=== PATIENT | male | born 1955 | race Caucasian/White ===

== ENCOUNTER 2018-01-15 09:29 | Inpatient (IN) | payer OTHER, SELFPAY ==
[2018-01-15] VITALS (28 sets, daily range): BP systolic 119–159; BP diastolic 74–107; PULSE 69–97; RESP 10–22; TEMP 36.4–37.1; O2SAT 96–99; BMI 35.9; BMI 36.6
[2018-01-15] MEDS: Heparin Injection 5,000 UNITS/ML Syringe 4000 UNITS IV (09:35)
[2018-01-15] MEDS: TICAGRELOR 90 MG TABLET 180 MG PO (09:35)
--- NOTE | 2018-01-15 09:35 | RAD_ITS ---
STUDY: X-RAY CHEST REASON FOR EXAM: Male, 62 years old. Chest pain TECHNIQUE: Single view of the chest was obtained COMPARISON: None. FINDINGS: No lung consolidation, pleural effusion or pneumothorax. Somewhat low lung volumes. Cardiac size appears enlarged. Mild perihilar streaky opacities. Slightly elevated right hemidiaphragm. RAD/Chest 1 View (Portable) IMPRESSION: No evidence for focal airspace disease or pneumothorax. Mild pulmonary vascular congestion. Electronically Signed: Juan Pal, at 10:13 EST Tel , Service support ,
--- NOTE | 2018-01-15 09:38 | ED.VISSUMM ---
- ER Visit Summary Date of Service: 01/15/18 Chief Complaint: Chest pain History of Present Illness: The patient is a [address] Gerardo. He reports he has intermittent chest pain that began 3 days ago. It became abruptly worse at 830 this morning while he was at rest. Is a sharp pain that is 9 out of 10 at worst and 7 out of 10 currently. It is associated with shortness of breath. He has never had anything like this before. He denies any high blood pressure, diabetes, high cholesterol, or tobacco use. He does have a strong family history of coronary artery disease. Physical Examination: Vitals: Stable. Afebrile. General: Well-nourished and well-developed. Head: Normocephalic atraumatic. Neck: Supple, no lymphadenopathy. No JVD. Nontender. Cardiovascular: Regular rate and rhythm. No murmurs. Respiratory: No respiratory distress. Clear to auscultation bilaterally. Abdominal: Soft, mild diffuse tenderness to palpation, nondistended, normal bowel sounds. No guarding, rebound, or peritoneal signs. Back: Nontender. Extremities: Nontender, no edema. Skin: Normal color, no rash. Neurologic: Alert and oriented ?3. Cranial nerves II through XII are intact. Normal strength and sensation. Psych: Normal affect. Test Results: Prehospital EKG shows sinus tachycardia at [address] elevation in leads V2 to V5. There is no old EKG for comparison. Emergency Department Course and Treatment: STEMI team was called before the patient arrived in the hospital. He was met in the ER by staff. He received aspirin by squad. This was not repeated. He received heparin IV and Brilinta p.o. Treatment Plan: The patient was discussed with Agiular Small. He will be taken emergently to the [facility]. Disposition: Admitted in critical condition. Impression: 1. ST elevation DE. 2. Critical care time 30 minutes. This note was generated with [employer] dictation software. It may contain incorrect words, spelling, and punctuation that were not noted in review of the chart prior to signing ED Disposition - Plan for ED Patient: Chief Complaint: Chest Pain Referrals: Frank Gerardo DO [Primary Care Provider] -
[2018-01-15] MEDS: 0.9% Normal Saline 1,000 ML 150 ML IV (09:40)
--- NOTE | 2018-01-15 09:46 | PCM.CONS.C ---
Problem List (1) STEMI (ST elevation myocardial infarction) Status: Acute Reason for Consult Date of Consultation: 01/15/18 History of Present Illness: The patient is a 62 year old M with no significant past medical history. He has been having intermittent chest pain over the last 2-3 days. However this morning it has been more constant and severe. EMS was therefore called. An EKG was done in the field which showed acute anterior ST elevation myocardial infarction. Patient denies any previous history of heart problems. According to him, the chest pain he is having is anterior. No radiation. Positive associated shortness of breath. [] Past Medical History Allergies/Adverse Reactions: Allergies NSAIDS (Non-Steroidal Anti-Inflamma Allergy (Verified 01/15/18 09:41) Swelling Smoking Status: Never smoker Review of Systems - Review of Systems General: Denies: Fever, Chills, Anorexia, Weight Loss HEENT: Reports: Vision Change Cardiovascular: Reports: Chest Discomfort at Rest, Chest Tightness, Shortness of Breath. Denies: Orthopnea, PND Respiratory: Denies: Cough, Hemoptysis Gastrointestinal: Denies: Abdominal Discomfort, Jaundice, Nausea Muscoloskeletal: Denies: Myalgias Neurological: Denies: History of TIA, History of CVA Endocrine: Denies: Heat Intolerance, Cold Intolerance Hematologic/ Lymphatic: Denies: Easy Brusing, Easy Bleeding Subjectve: Appears mildly anxious Objective: Vital Signs Temp Pulse Resp BP Pulse Ox 98.2 F 97 18 141/95 H 96 01/15/18 09:35 01/15/18 09:35 01/15/18 09:35 01/15/18 09:35 01/15/18 09:41 Oxygen Flow Rate 2 Oxygen Delivery Method Nasal Cannula Weight: 113.5 kg Body Mass Index (BMI) 35.9 General: Awake, Alert, Oriented x 3 HEENT: Atraumatic, Normocephalic Oral: Moist Mucosa Neck: Supple, No JVD Lungs: Clear to auscultation Cardiovascular: Regular Rhythm, Normal S1, Normal S2 Vascular: No Carotid Bruits Abdomen: Bowel Sounds Present, Soft Extremities: No edema Neurological: No Focal Motor or Sensory Deficit Psych/Mental Status: Appropriate Rhythm: Normal sinus rhythm EKG: EKG done in the field shows changes consistent with acute anterior myocardial infarction. ECHO: Stress Test: Cardiac Cath: PCI: CT Surgery: Holter monitor: EPS: PPM: CXR: Chest CT Scan: Assessment/Plan 1. Anterior ST elevation myocardial infarction. Recommend emergent cardiac catheterization with coronary angiography and possible revascularization. Risks benefits were explained to the patient. He understands these and wishes to proceed 2. Further recommendations will follow results of cardiac catheterization
[2018-01-15 10:00] LABS: Absolute Lymphocyte Count 2.02 X10^3/ul (0.83-4.51); Absolute Neutrophil Count 3.6 X10^3/uL (2.0-7.7); Basophil# 0.02 X10^3/uL; Basophil% 0.3 % (0-1); Eosinophil# 0.05 X10^3/uL; Eosinophils% 0.8 % (0-5); Hematocrit 48.2 % (40-54); Hemoglobin 16.4 g/dl (13.0-16.5); Lymphocyte # 2.02 X10^3/ul (4.0); Lymphocyte % 32.4 % (19-41); Mean Corpuscular Hgb 30.7 pg (27.0-32.0); Mean Corpuscular Volume 90.3 fL (80-94); Mean Platelet Vol. 10.1 fl (6.2-12.0); Monocyte# 0.52 X10^3/uL; Monocyte% 8.3 % (0-10); Neutrophil % 57.7 % (47-70); POSITIVE COUNT NO; POSITIVE DIFFERENTIAL NO; POSITIVE MORPHOLOGY NO; Platelet Count 249 K/mm3 (150-450); RBC Distribution Width CV 12.6 % (11.6-14.6); RBC Distribution Width SD 41.2 fl (35.1-43.9); Red Blood Count 5.34 M/mm3 (4.6-6.2); White Blood Count 6.2 K/mm3 (4.4-11.0)
[2018-01-15 10:03] LABS: Prothrombin Time (Protime)PT. 13.4 SECONDS (11.7-14.9)
[2018-01-15 10:04] LABS: Partial Thromboplast Time 26.9 Seconds (24.1-36.2)
[2018-01-15 10:13] LABS: Anion Gap 9 (5-15); BUN 17 mg/dL (7-18); BUN/Creat Ratio 16.2 RATIO (10-20); Calcium,Total 8.5 mg/dL (8.5-10.1); Chloride 109 mmol/L (98-107); Creatinine, Serum 1.05 mg/dL (0.70-1.30); EST Glomerular Filtration Rate 76 mL/min (>60); Est Glom Filt Rate - Afr Amer 92 mL/min (>60); Estimated Creatinine Clearance 75.32 ml/min; Glucose 151 mg/dL (74-106); Potassium 3.7 mmol/L (3.5-5.1); Sodium Level 140 mmol/L (136-145)
[2018-01-15 10:51] LABS: ACT Activated Clotting Time 307 sec (74-137)
[2018-01-15 10:51] LABS: ACT Activated Clotting Time 142 sec (74-137)
--- NOTE | 2018-01-15 10:57 | ECHOD_ITS ---
Reason For Study: S/P NC Procedure This was a 2D Doppler, Color Flow transthoracic echocardiogram. Exam performed portable in ICU/CCU. Left Ventricle Normal LV size. The estimated ejection fraction is 40 %. Mild to moderate segmental systolic dysfunction (see wall motion). Mid-Anterior : Hypokinetic. Mid-anteroseptal : Hypokinetic. Mentcle : Hypokinetic. The rest of the wall segments are normal. Right Ventricle Normal RV size. Normal systolic function. Mitral Valve Normal mitral valve. Trivial eccentric mitral valve insufficiency. Tricuspid Valve Normal tricuspid valve. Mild (1+) tricuspid valve insufficiency. Pulmonary artery systolic pressure is 24 mmHg. Aortic Valve Trisinus/trileaflet aortic valve. Normal aortic valve. Pulmonic Valve Normal pulmonic valve. Great Vessels Normal aortic root. The pulmonary artery is normal size. Normal inferior vena cava. Pericardium/Pleural No pericardial effusion. Medication Definity0.5ml given slow IV push to enhance endocardial definition. MMode/2D Measurements & Calculations LVIDd: 5.6 cm IVSd: 1.1 cm Ao root diam: 4.0 cm LVIDs: 4.6 cm LVPWd: 1.1 cm LA dimension: 2.7 cm RVDd: 3.0 cm FS: 18.5 % LAV(MOD-bp): 20.1 ml LA A4 area: 11.1 cm2 RA A4 area: 11.7 cm2 LAV(MOD-bp) Indexed: 8.8 ml/m2 LAV(MOD-sp2): 19.1 ml LAV(MOD-sp4): 21.6 ml Doppler Measurements & Calculations MV E max naldo: 28.6 cm/sec Lat Peak E' Naldo: 5.2 cm/sec Med Peak E' Naldo: 3.6 cm/sec MV A max naldo: 72.2 cm/sec E/E' lat: 5.5 E/E' med: 7.9 MV E/A: 0.40 Ao V2 max: 105.3 cm/sec LV V1 max: 72.4 cm/sec PA V2 max: 70.1 cm/sec Ao max P.4 mmHg LV V1 max P.1 mmHg Ao V2 mean: 83.1 cm/sec Ao mean P.9 mmHg Ao V2 VTI: 20.3 cm PI end-d naldo: 114.8 cm/sec TR max naldo: 219.3 cm/sec TR max P.2 mmHg Interpretation Summary Normal LV size. The estimated ejection fraction is 40 %. Mild to moderate segmental systolic dysfunction (see wall motion). Contrast injection was performed. Ordering Physician: Priyank Sheikh Referring Physician: Priyank Sheikh Performed By: Charlette Owens RDCS, RVT
--- NOTE | 2018-01-15 11:00 | EKG12_ITS ---
Test Reason : PCI Blood Pressure : / mmHG Vent. Rate : 069 BPM Atrial Rate : 069 BPM P-R Int : 166 ms QRS Dur : 088 ms QT Int : 434 ms P-R-T Axes : 006 001 002 degrees QTc Int : 465 ms Sinus rhythm with occasional Premature ventricular complexes Septal infarct , age undetermined T wave abnormality, consider anterolateral ischemia Abnormal ECG No previous ECGs available Confirmed by RANDAL MULLER, NASRA ([id number]), staff editor ROBYN WOLFE ([id number]) on 01/18/2018 1:48:50 PM Referred By: Priyank Sheikh Confirmed By:NASRA TEE MD
[2018-01-15] MEDS: 0.9% Normal Saline 1,000 ML 75 ML IV (11:46)
--- NOTE | 2018-01-15 12:56 | CL.I_ITS ---
Patient Name: KEVIN MORENO Study Date: 01/15/2018 Performing: Priyank Sheikh MD Ht: inches cm : 1955 Wt: lbs kg Age: 62 Gender: male BSA: PROCEDURE(S) PERFORMED [id number], IRENE AND/OR PTCA, ARTERY OR GRAFT, SINGLE VESSEL [id number], CORONARY OR GRAFT, INITIAL VESSEL CLINICAL PROFILE AND CO-MORBIDITIES CAD Presentations: STEMI. Symptom onset Date/Time: 01/15/2018 08:30:00 Time Estimated CONCLUSIONS 99% Mid LAD with BOYD II flow Successful aspiration thrombectomy/IRENE Mid LAD using Resolute Integrity 3.0x26 mm Post IVUS showed excellent stent apposition. Prox LAD 50% with oblong residual lumen 6.4 mm sq LVEF 35% RECOMMENDATIONS ASA Indefinitley Brilinta for at least 12 months Routine post interventional care DESCRIPTION OF PROCEDURE The patient arrived to the procedure lab. The risks and benefits of the procedure as well as a full d escription of our services here and lack of surgical backup were fully explained to the patient and/o r their significant other prior to the catheterization. The Timeout was completed, verifying the sal[place] ect patient and procedure. The patient's procedural site was prepped and draped in the usual fashion. Local anesthetic was given subcutaneously to right radial region with Lidocaine 2%. Using a modified Seldinger technique, arterial access was obtained via the right radial artery, a 6Fr sheath was inse rted.. Left Ventriculography was performed in DUNLAP projection using a 5 Fr. Pigtail catheter. LV to A O pullback pressures were then recorded XB 3 Guide catheter was inserted and engaged into the LCA. Runthrough Guide wire was advanced to the LAD. Elba AP inserted Pass # 1 Elba AP Removed Angiogram performed post balloon dilatation. 3x26 Resolute Drug Eluting stent was inserted Drug Eluting stent was advanced across the lesion in the LAD , mid. Angiogram performed post stent deployment. 3x20 NC Emerge Balloon catheter was inserted. Ballo on catheter was advanced across lesion in the LAD, mid. Angiogram performed post stent deployment. Ru nthrough Guide wire was advanced to the LAD. Angiogram performed post stent deployment. IVUS pullback recording was performed on the for post PCI assessment. . The arterial sheath was pulled and a TR Band was applied for hemostasis, 18cc of air. CORONARY ANGIOGRAPHY DOMINANCE: Right Dominant LEFT HEART ASSESSMENT Left Ventricular Ejection Fraction: by LV Gram 35 % LVEDP: 7 mmHg LEFT MAIN: 20% Mid and distal LEFT ANTERIOR DECENDING ARTERY: 99% mid with thrombus; 50% prox CIRCUMFLEX ARTERY: No angiographically significant disease RIGHT CORONARY ARTERY: Mild luminal irregularities INTERVENTION INFORMATION LESION SITE: LAD (Mid) Lesion Complexity: High/C, thrombus present: Yes, culprit lesion: Yes Pre Stenosis: 99 % Pre intervention BOYD flow: 2 PROCEDURE: Drug Eluting Stent with post dilatation, Aspiration thrombectomy Post Stenosis: 0 % Post intervention BOYD flow: 3 Lesion Devices: Medtronic 6 Fr. Elba AP Aspiration Catheter Terumo .014 Runthrough Extra Floppy 180cm straight Medtronic Resolute RX IRENE 3.0x26 [place] [employer] NC EMERGE MR 3.00x20 BALLOON [place] Coronary IVUS Catheter COMPLICATIONS No Complications PROCEDURE MEDICATIONS Fentanyl 25 mcg IV Oxygen: 2 L/min via nasal cannula Angiomax Bolus 17.3 ml's 01/15/2018 10:04:09 Angiomax 5mg / ml IV started @ 39.6 ml/hr @ 01/15/2018 10:06:22 Nitro 200 mcg IC 01/15/2018 10:12:07 SUMMARY OF HEMODYNAMIC DATA Time AIR REST ECG 09:53:13 AO 110/77 (92) SA 10:00:26 AO 127/87 (107) 10:11:07 LV 110/6, 16 10:41:25 LV 110/-1, 7 10:41:32 LVp 113/11, 14 10:42:32 AOp 113/78 (94) 10:42:37 Signed By Priyank Sheikh MD On 01/15/2018 12:56:10 Priyank Sheikh MD
[2018-01-15] MEDS: Carvedilol 3.125 MG TABLET PO ×2 (13:31→21:31)
[2018-01-15] MEDS: Lisinopril 2.5 MG Tablet PO (13:31)
--- NOTE | 2018-01-15 13:31 | PCM.HP.STD ---
Problem List (1) Glaucoma Status: Chronic (2) Hyperglycemia Status: Acute (3) STEMI (ST elevation myocardial infarction) Status: Acute (4) FH ischemic heart disease Status: Chronic (5) Obesity Status: Chronic Qualifiers: Obesity type: due to excess calories Body mass index: BMI 36.0-36.9 History of Present Illness Date of Admission: 01/15/18 Chief Complaint: chest pain The patient is a 62 year old M with a PMH of Glaucoma and an extensive FH of CVD who presented to the ED at [facility] on 01/15/18 c/o chest pain. 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 Sheikh. There was a 99% mid LAD lesion and he had thrombectomy/IRENE. There was also a proximal LAD lesion 50%. there was global hypokinesis and a 35% EF. He tells me that he started having CP with exertion of 01/12/18. the CP came and went. He is normally very active but told his he did not feel well Tuesday night but, di not want to come to the hospital. today he was sitting on the couch and developed substernal chest pressure. He became diaphoretic. He denies SOB, palpitations, nausea, abdominal pain. He was brought to the hospital by squad. CBC is within normal limits. PT and PTT were normal. BMP was unremarkable. A random blood sugar was elevated at 151 and he has no history of diabetes mellitus. Initial troponin was 0.08. Following cardiac cath and drug-eluting stent he was transferred to the intensive care unit and is currently on a statin, aspirin, Brilinta, Coreg and lisinopril. He denies any CP at the present time and appears to be in no distress. Past Medical History Past Medical History (Chronic Problems): Chronic Problems Glaucoma (Chronic) FH ischemic heart disease (Chronic) Obesity (Chronic) Allergies NSAIDS (Non-Steroidal Anti-Inflamma Allergy (Verified 01/15/18 09:41) Swelling Surgical History: no surgical history Psychiatric History: No pertinent psych hx Lives: Spouse/ Significant Other Smoking Status: Never smoker Tobacco Use: Non-smoker Alcohol: None Drugs: None - *Family History Maternal History Items: Heart Disease Paternal History Items: Heart Disease Sibling History Items: Heart Disease Review of Systems Constitutional: Denies: Chills, Fever, Weight Change HEENT: Denies: Head Aches, Sinus Congestion, Sinus Drainage Cardiovascular: Reports: Chest Pain. Denies: Edema, Light Headedness, Orthopnea, Palpitations, Paroxysmal Noc. Dyspnea, Syncope Respiratory: Denies: Cough, Shortness of breath at rest, Sputum production Gastrointestinal: Denies: Abdominal Pain, Nausea, Vomiting Genitourinary: Denies: Dysuria, Frequency, Retention, Urgency Musculoskeletal: Denies: Joint Pain, Joint Tenderness Skin: Denies: Rash, Wounds Neurological: Denies: Numbness, Tingling, Focal weakness Psychiatric: Denies: Anxiety, Depression, Homicidal Ideations, Suicidal Ideations Endocrine: Denies: Change in Body Habitus, Hx of Thyroiditis Hematologic/ Lymphatic: Denies: Hx of blood clot VTE Information - Inpt Only VTE Present on Admission: No VTE Mechan Device Prophylaxis: SCD's, Knee High JOSE Hose VTE Pharm Prophylaxis ordered?: No Reason prophylaxis not ordered:: Treatment Not Indicated Patient Problems: Active and Suspected Problems STEMI (ST elevation myocardial infarction) (Acute) Hyperglycemia (Acute) - Physical Exam General: Alert, Oriented x3, Cooperative, No apparent distress, Well developed, Well nourished HEENT: Atraumatic, PERRLA, EOMI, Normocephalic Oral: Moist Mucosa Neck: Supple, No JVD, Negative Carotid Bruits, Trachea Midline Lungs: Clear to auscultation, Normal air movement Cardiovascular: Regular rate, Regular Rhythm, Normal S1, Normal S2, No murmurs, No rub noted, No Gallop, - - having NSR with PVC's on the telemetry unit Abdomen: Bowel Sounds Present, Soft, Non Tender, Non-Distended, Obese Extremities: No clubbing, No cyanosis, No edema, Capillary Refill Less than 3 Seconds, No Calf Tenderness, Diminished Peripheral Pulses - mildy diminished Skin: No rashes, No breakdown Musculoskeletal: No Muscle Wasting Neurological: Cranial nerves II-XII grossly intact, Neuro grossly intact Psych/Mental Status: Normal Affect, Appropriate Vital Signs Temp Pulse Resp BP Pulse Ox 97.6 F L 69 16 119/102 H 99 01/15/18 11:15 01/15/18 13:15 01/15/18 13:15 01/15/18 13:15 01/15/18 13:15 Oxygen Delivery Method Room Air Weight: 254 lb 13.67 oz Body Mass Index (BMI) 36.6 Laboratory Tests Past 24 Hrs 01/15/18 01/15/18 01/15/18 10:01 10:38 11:30 Activated Clotting Time 142 H 307 H MRSA (PCR) Pending Assessment/Plan Active and Suspected Problems STEMI (ST elevation myocardial infarction) (Acute) Hyperglycemia (Acute) Impressions 1. STEMI 2. 99% occlusion of the mid LAD - S/P Thrombectomy and IRENE 3. 50% stenosis of the proximal LAD 4. Ischemic CM with a 35% EF but, no wall motion abnormality 5. Obesity 6. strong FH of CVD 7. Glaucoma 8. Hyperglycemia with no hx of DM - likely due to stress continue ASA, Brilinta, Coreg, Lisinopril and atorvastatin, ASA check a HGBA1C, Mag and liver panel Lipid panel in the AM ECHO tomorrow All his questions were answered. Teds and SCD's for DVT prophylaxis - start Lovenox tomorrow
[2018-01-15] MEDS: Atorvastatin Calcium 40 MG Tablet PO ×2 (13:32→21:31)
--- NOTE | 2018-01-15 13:48 | HP.PCM_ITS ---
Problem List (1) Glaucoma Status: Chronic (2) Hyperglycemia Status: Acute (3) STEMI (ST elevation myocardial infarction) Status: Acute (4) FH ischemic heart disease Status: Chronic (5) Obesity Status: Chronic Qualifiers: Obesity type: due to excess calories Body mass index: BMI 36.0-36.9 History of Present Illness Date of Admission: 01/15/18 Chief Complaint: chest pain The patient is a 62 year old M with a PMH of Glaucoma and an extensive FH of CVD who presented to the ED at [facility] on 01/15/18 c/o chest pain. 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 Sheikh. There was a 99% mid LAD lesion and he had thrombectomy/IRENE. There was also a proximal LAD lesion 50 %. there was global hypokinesis and a 35% EF. He tells me that he started having CP with exertion of 01/12/18. the CP came and went. He is normally very active but told his he did not feel well Tuesday night but, di not want to come to the hospital. today he was sitting on the couch and developed substernal chest pressure. He became diaphoretic. He denies SOB, palpitations , nausea, abdominal pain. He was brought to the hospital by squad. CBC is within normal limits. PT and PTT were normal. BMP was unremarkable. A random blood sugar was elevated at 151 and he has no history of diabetes mellitus. Initial troponin was 0.08. Following cardiac cath and drug-eluting stent he was transferred to the intensive care unit and is currently on a statin, aspirin , Brilinta, Coreg and lisinopril. He denies any CP at the present time and appears to be in no distress. Past Medical History Past Medical History (Chronic Problems): Chronic Problems Glaucoma (Chronic) FH ischemic heart disease (Chronic) Obesity (Chronic) Allergies NSAIDS (Non-Steroidal Anti-Inflamma Allergy (Verified 01/15/18 09:41) Swelling Surgical History: no surgical history Psychiatric History: No pertinent psych hx Lives: Spouse/ Significant Other Smoking Status: Never smoker Tobacco Use: Non-smoker Alcohol: None Drugs: None - *Family History Maternal History Items: Heart Disease Paternal History Items: Heart Disease Sibling History Items: Heart Disease Review of Systems Constitutional: Denies: Chills, Fever, Weight Change HEENT: Denies: Head Aches, Sinus Congestion, Sinus Drainage Cardiovascular: Reports: Chest Pain. Denies: Edema, Light Headedness, Orthopnea , Palpitations, Paroxysmal Noc. Dyspnea, Syncope Respiratory: Denies: Cough, Shortness of breath at rest, Sputum production Gastrointestinal: Denies: Abdominal Pain, Nausea, Vomiting Genitourinary: Denies: Dysuria, Frequency, Retention, Urgency Musculoskeletal: Denies: Joint Pain, Joint Tenderness Skin: Denies: Rash, Wounds Neurological: Denies: Numbness, Tingling, Focal weakness Psychiatric: Denies: Anxiety, Depression, Homicidal Ideations, Suicidal Ideations Endocrine: Denies: Change in Body Habitus, Hx of Thyroiditis Hematologic/ Lymphatic: Denies: Hx of blood clot VTE Information - Inpt Only VTE Present on Admission: No VTE Mechan Device Prophylaxis: SCD's, Knee High JOSE Hose VTE Pharm Prophylaxis ordered?: No Reason prophylaxis not ordered:: Treatment Not Indicated Patient Problems: Active and Suspected Problems STEMI (ST elevation myocardial infarction) (Acute) Hyperglycemia (Acute) - Physical Exam General: Alert, Oriented x3, Cooperative, No apparent distress, Well developed, Well nourished HEENT: Atraumatic, PERRLA, EOMI, Normocephalic Oral: Moist Mucosa Neck: Supple, No JVD, Negative Carotid Bruits, Trachea Midline Lungs: Clear to auscultation, Normal air movement Cardiovascular: Regular rate, Regular Rhythm, Normal S1, Normal S2, No murmurs, No rub noted, No Gallop, - - having NSR with PVC's on the telemetry unit Abdomen: Bowel Sounds Present, Soft, Non Tender, Non-Distended, Obese Extremities: No clubbing, No cyanosis, No edema, Capillary Refill Less than 3 Seconds, No Calf Tenderness, Diminished Peripheral Pulses - mildy diminished Skin: No rashes, No breakdown Musculoskeletal: No Muscle Wasting Neurological: Cranial nerves II-XII grossly intact, Neuro grossly intact Psych/Mental Status: Normal Affect, Appropriate Vital Signs Temp Pulse Resp BP Pulse Ox 97.6 F L 69 16 119/102 H 99 01/15/18 11:15 01/15/18 13:15 01/15/18 13:15 01/15/18 13:15 01/15/18 13:15 Oxygen Delivery Method Room Air Weight: 254 lb 13.67 oz Body Mass Index (BMI) 36.6 Laboratory Tests Past 24 Hrs 01/15/18 01/15/18 01/15/18 10:01 10:38 11:30 Activated Clotting Time 142 H 307 H MRSA (PCR) Pending Assessment/Plan Active and Suspected Problems STEMI (ST elevation myocardial infarction) (Acute) Hyperglycemia (Acute) Impressions 1. STEMI 2. 99% occlusion of the mid LAD - S/P Thrombectomy and IRENE 3. 50% stenosis of the proximal LAD 4. Ischemic CM with a 35% EF but, no wall motion abnormality 5. Obesity 6. strong FH of CVD 7. Glaucoma 8. Hyperglycemia with no hx of DM - likely due to stress continue ASA, Brilinta, Coreg, Lisinopril and atorvastatin, ASA check a HGBA1C, Mag and liver panel Lipid panel in the AM ECHO tomorrow All his questions were answered. Teds and SCD's for DVT prophylaxis - start Lovenox tomorrow
[2018-01-15 14:56] LABS: AST(SGOT) 31 U/L (15-37); Alanine Aminotransfer ALT/SGPT 54 U/L (16-61); Albumin, Serum 3.9 g/dL (3.2-5.0); Alkaline Phosphatase 74 U/L (45-117); Bilirubin, Direct 0.16 mg/dL (0.00-0.30); Globulin 3.5 g/dL (2.2-4.2); Magnesium 2.2 mg/dL (1.6-2.6); Protein, Total 7.4 g/dL (6.4-8.2)
[2018-01-15 15:08] LABS: Hemoglobin A1c 6.4 % (4.2-6.3)
[2018-01-15 16:05] LABS: M R Staph aureus DNA By PCR Negative (Negative); Probe Check PASS; Specimen Processing Control PASS
[2018-01-15] MEDS: Spironolactone 25 MG Tablet 12.5 MG PO (18:47)
[2018-01-15] MEDS: Lisinopril 5 MG Tablet PO (19:53)
[2018-01-15] MEDS: TICAGRELOR 90 MG TABLET PO (21:31)
[2018-01-15] MEDS: LORazepam 2 MG/ML Syringe 1 MG IV (21:32)
[2018-01-16] VITALS (20 sets, daily range): BP systolic 95–132; BP diastolic 52–96; PULSE 74–96; RESP 8–20; TEMP 36.8–37; O2SAT 93–98
[2018-01-16 04:47] LABS: AST(SGOT) 110 U/L (15-37); Alanine Aminotransfer ALT/SGPT 58 U/L (16-61); Albumin, Serum 3.6 g/dL (3.2-5.0); Alkaline Phosphatase 68 U/L (45-117); Anion Gap 10 (5-15); BUN 12 mg/dL (7-18); BUN/Creat Ratio 13.6 RATIO (10-20); Calcium,Total 8.5 mg/dL (8.5-10.1); Chloride 105 mmol/L (98-107); Cholesterol 135 mg/dL (200); Creatinine, Serum 0.88 mg/dL (0.70-1.30); EST Glomerular Filtration Rate 93 mL/min (>60); Est Glom Filt Rate - Afr Amer 113 mL/min (>60); Estimated Creatinine Clearance 89.87 ml/min; Globulin 3.5 g/dL (2.2-4.2); Glucose 121 mg/dL (74-106); High Density Lipoprotein 30 mg/dL; Potassium 3.6 mmol/L (3.5-5.1); Protein, Total 7.1 g/dL (6.4-8.2); Sodium Level 139 mmol/L (136-145); Triglycerides 121 mg/dL; Very Low Density Lipoprotein 24 mg/dL (5-40)
--- NOTE | 2018-01-16 08:27 | CRPHASE1 ---
Patient Data/Charges Insurance #1:: [facility] ins PCP:: Frank Gerardo Date/Diagnosis #1:: STEMI w/PCI Risk Factors/Lifestyle Smoking Status: Never smoker Second-Hand Smoke:: No Hx Hypertension: Yes - I've had some, on no medication Hx Diabetes Mellitus Type 1: No Hx Diabetes Mellitus Type 2: No Hx Dyslipidemia: No Hx Obesity: Yes Height: 70 m Weight:: 113.5 kg BMI: 0.0 Stress: Work-related ETOH: No Caffeine: No Substance Abuse: No Risk Factor for Sedentary Lifestyle: Highest Risk Family History: Heart Disease Laboratory Values: Cardiac Rehab Phase I Labs Hemoglobin A1c 6.4 % (4.2-6.3) H 01/15/18 09:25 Triglycerides 121 mg/dL (-199) 01/16/18 04:25 Cholesterol 135 mg/dL (200) 01/16/18 04:25 LDL Cholesterol 81 mg/dL (0-130) 01/16/18 04:25 HDL Cholesterol 30 mg/dL (40-) L 01/16/18 04:25 Phase I Education Given On:: [place] Issues Affecting Care:: None Knowledge of Condition:: Yes - needs reinforced Hospital Course Pain Description: Pressure Pain Intensity: 9 Medical/Surgical History HI:: Yes Angina:: Yes COPD:: No Asthma:: No Diabetes:: No Diabetes Type I:: No Diabetes Type II:: No Hypertension:: No Dyslipidemia:: No DVT:: No PVD:: No Arthritis:: Yes GERD:: No Cancer:: No Renal:: No Thyroid:: No Anxiety:: Yes - at present Discharge/Home/Social Eval Discharge Disposition: Home Marital Status:
--- NOTE | 2018-01-16 08:37 | CRPHASE1_ITS ---
Patient Data/Charges Insurance #1:: [facility] ins PCP:: Frank Gerardo Date/Diagnosis #1:: STEMI w/PCI Risk Factors/Lifestyle Smoking Status: Never smoker Second-Hand Smoke:: No Hx Hypertension: Yes - I've had some, on no medication Hx Diabetes Mellitus Type 1: No Hx Diabetes Mellitus Type 2: No Hx Dyslipidemia: No Hx Obesity: Yes Height: 70 m Weight:: 113.5 kg BMI: 0.0 Stress: Work-related ETOH: No Caffeine: No Substance Abuse: No Risk Factor for Sedentary Lifestyle: Highest Risk Family History: Heart Disease Laboratory Values: Cardiac Rehab Phase I Labs Hemoglobin A1c 6.4 % (4.2-6.3) H 01/15/18 09:25 Triglycerides 121 mg/dL (-199) 01/16/18 04:25 Cholesterol 135 mg/dL (200) 01/16/18 04:25 LDL Cholesterol 81 mg/dL (0-130) 01/16/18 04:25 HDL Cholesterol 30 mg/dL (40-) L 01/16/18 04:25 Phase I Education Given On:: [place] Issues Affecting Care:: None Knowledge of Condition:: Yes - needs reinforced Hospital Course Pain Description: Pressure Pain Intensity: 9 Medical/Surgical History RI:: Yes Angina:: Yes COPD:: No Asthma:: No Diabetes:: No Diabetes Type I:: No Diabetes Type II:: No Hypertension:: No Dyslipidemia:: No DVT:: No PVD:: No Arthritis:: Yes GERD:: No Cancer:: No Renal:: No Thyroid:: No Anxiety:: Yes - at present Discharge/Home/Social Eval Discharge Disposition: Home Marital Status:
--- NOTE | 2018-01-16 08:37 | CRPH1.INSTRU ---
General Education CAD and cardiac anatomy and function:: Needs reinforcement Explanation of diagnoses and procedures:: Needs reinforcement Sign/Symptoms of [place]:: Needs reinforcement Antiplatelet therapy: Patient communicates acknowledgment, Needs reinforcement Proper use of NTG-SL: Patient communicates acknowledgment, Needs reinforcement Emergency procedures and activation of EMS: Patient communicates acknowledgment, Needs reinforcement Compliance of all prescribed medications: Not instructed Smoking Patient Nicotine/Smoking Risk Factors Are:: Never smoked Dyslipidemia Dyslipidemia Response Code:: Not instructed Overweight/Obesity Patient Overweight/Obesity Risk Factors Are:: Overweight = 26-29 Overweight/Obesity:: Not instructed Hypertension Hypertension:: Not instructed Heart Disease Patient Heart Disease Risk Factors Are:: Family history of heart disease < 65 years old Heart Disease Response Code:: Needs reinforcement Diabetes Patient Diabetes Risk Factors Are:: No documented hx of diabetes Metabolic Syndrome Metabolic Syndrome Response Code:: Not instructed Sedentary Sedentary Response Code:: Needs reinforcement Stress Recommendations Include:: Identification of stressors, and assessment of coping skills - work stress
--- NOTE | 2018-01-16 08:43 | CRPH1.INST_ITS ---
General Education CAD and cardiac anatomy and function:: Needs reinforcement Explanation of diagnoses and procedures:: Needs reinforcement Sign/Symptoms of [place]:: Needs reinforcement Antiplatelet therapy: Patient communicates acknowledgment, Needs reinforcement Proper use of NTG-SL: Patient communicates acknowledgment, Needs reinforcement Emergency procedures and activation of EMS: Patient communicates acknowledgment , Needs reinforcement Compliance of all prescribed medications: Not instructed Smoking Patient Nicotine/Smoking Risk Factors Are:: Never smoked Dyslipidemia Dyslipidemia Response Code:: Not instructed Overweight/Obesity Patient Overweight/Obesity Risk Factors Are:: Overweight = 26-29 Overweight/Obesity:: Not instructed Hypertension Hypertension:: Not instructed Heart Disease Patient Heart Disease Risk Factors Are:: Family history of heart disease < 65 years old Heart Disease Response Code:: Needs reinforcement Diabetes Patient Diabetes Risk Factors Are:: No documented hx of diabetes Metabolic Syndrome Metabolic Syndrome Response Code:: Not instructed Sedentary Sedentary Response Code:: Needs reinforcement Stress Recommendations Include:: Identification of stressors, and assessment of coping skills - work stress
[2018-01-16] MEDS: 0.9% NaCl Peripheral Flush Adult/Peds IV (08:50)
[2018-01-16] MEDS: Aspirin E.C. 81 MG Tablet PO (08:50)
--- NOTE | 2018-01-16 09:17 | PN_ITS ---
Patient Problems: Active and Suspected Problems STEMI (ST elevation myocardial infarction) (Acute) Hyperglycemia (Acute) Subjective: Patient was seen and examined. No acute events overnight. Vitals reviewed and stable. Has no new complains. Vitals/I&O's: Vital Signs Temp Pulse Resp BP Pulse Ox 98.6 F 82 17 109/76 96 01/16/18 08:00 01/16/18 08:00 01/16/18 08:00 01/16/18 08:00 01/16/18 08:00 Oxygen Delivery Method Room Air Weight: 113.5 kg Body Mass Index (BMI) 36.6 Intake and Output for Last 24 Hours 01/14/18 01/15/18 01/16/18 23:59 23:59 23:59 Intake Total 465.9 / 465.9 100 / 100 Output Total 1625 / 1625 825 / 825 Balance -1159.1 / -1159.1 -725 / -725 General: Alert, Oriented x3, Cooperative, No apparent distress HEENT: Atraumatic, PERRLA, EOMI, Normocephalic Oral: Moist Mucosa Neck: Supple Lungs: Clear to auscultation, Normal air movement Cardiovascular: Regular rate, Regular Rhythm, Normal S1, Normal S2, No murmurs Abdomen: Bowel Sounds Present, Soft, Non Tender, Non-Distended, No Hepato- splenomegaly Extremities: No edema Skin: No rashes Musculoskeletal: No Tenderness to Palpation of Joints or Extremities Lymphatic: No Cervical, Supraclavicular, or Inguinal Adenopathy Neurological: Cranial nerves II-XII grossly intact, Neuro grossly intact Psych/Mental Status: Normal Affect, Appropriate Laboratory Results 01/15/18 11:30: MRSA (PCR) Negative 01/16/18 04:25: Sodium 139, Potassium 3.6, Chloride 105, Carbon Dioxide 24.0, Anion Gap 10, BUN 12, Creatinine 0.88, Estim Creat Clear Calc 89.87, Est GFR ( MDRD) Af Amer 113, Est GFR (MDRD) Non-Af 93, BUN/Creatinine Ratio 13.6, Glucose 121 H, Calcium 8.5, Total Bilirubin 1.00, AST 110 H, ALT 58, Alkaline Phosphatase 68, Total Protein 7.1, Albumin 3.6, Globulin 3.5, Albumin/Globulin Ratio 1.0, Triglycerides 121, Cholesterol 135, LDL Cholesterol 81, VLDL Cholesterol 24, HDL Cholesterol 30 L Current Medications Aspirin (Ecotrin) 81 mg PO DAILY@0800 [facility] Last Admin: 01/16/18 08:50 Dose: 81 mg Atorvastatin Calcium (Lipitor) 40 mg PO QHS [facility] Last Admin: 01/15/18 21:31 Dose: 40 mg Atropine Sulfate () 0.5 mg IV UD PRN PRN Reason: HR <50 bpm Carvedilol (Coreg) 3.125 mg PO BID [facility] Last Admin: 01/15/18 21:31 Dose: 3.125 mg Sodium Chloride () 250 mls @ 15 mls/hr IV .[id number] PRN PRN Reason: SALINE FLUSH Lisinopril (Zestril) 2.5 mg PO DAILY [facility] Last Admin: 01/15/18 13:31 Dose: 2.5 mg Sodium Chloride () 500 ml IV BOLUS PRN PRN Reason: VASO-VAGAL PROTOCOL Sodium Chloride () 5 - 30 ml IV UD PRN PRN Reason: SALINE FLUSH Last Admin: 01/16/18 08:50 Dose: 10 ml Spironolactone (Aldactone) 12.5 mg PO DAILY [facility] Last Admin: 01/15/18 18:47 Dose: 12.5 mg Ticagrelor (Brilinta) 90 mg PO BID [facility] Last Admin: 01/15/18 21:31 Dose: 90 mg Assessment/Plan Active and Suspected Problems STEMI (ST elevation myocardial infarction) (Acute) Hyperglycemia (Acute) 62-year-old male with family history of cardiovascular disease, admitted on 2017 with complaints of chest pain and EKG shows STEMI and was taken to the blood bank laboratory technician. Findings include 99% mid LAD lesion and he is status post thrombectomy and IRENE. 1. Acute STEMI status post PCI/thrombectomy and stent to mid-LAD, aspirin, on statin, beta-sary, CESAR inhibitor, spironolactone, Brilinta. Lipid Profile showed Total cholesterol 135, LDL of 81, HDL 30, triglycerides 121 2. Ischemic cardiomyopathy, EF of 35%, status post recent PCI/stents, on CESAR inhibitor, spironolactone, beta-sary, aspirin, brilinta 3. Type II DM, newly diagnosed, HbA1c is 6.4, would hold off starting any metformin, will get dietitian to educate on diet 4. Obesity 5. DVT PPx - Lovenox SC Code Visit Inpatient E&M: 77288 Subs Hosp L3
--- NOTE | 2018-01-16 09:54 | CASEMGMT ---
ARNOL CM Note: pt is independent, no DME. DC Plan is home. Brill[employer] savings card given to pt and explained. Olman STRONG RN ACM
--- NOTE | 2018-01-16 10:30 | PN.CARD_ITS ---
Subjectve: No complaints. No chest pain. No shortness of breath Objective: Vital Signs Temp Pulse Resp BP Pulse Ox 98.6 F 82 17 109/76 96 01/16/18 08:00 01/16/18 08:00 01/16/18 08:00 01/16/18 08:00 01/16/18 08:00 Oxygen Delivery Method Room Air Weight: 113.5 kg Body Mass Index (BMI) 36.6 Intake and Output for Last 24 Hours 01/14/18 01/15/18 01/16/18 23:59 23:59 23:59 Intake Total 465.9 / 465.9 100 / 100 Output Total 1625 / 1625 825 / 825 Balance -1159.1 / -1159.1 -725 / -725 General: Healthy Appearing, Awake, Alert, Oriented x 3, No Acute Distress Lungs: Clear to auscultation Cardiovascular: Regular Rhythm, Normal S1, Normal S2, No Rubs Vascular: - - Right radial pulse 2+ Abdomen: Bowel Sounds Present, Soft Extremities: No edema 01/16/18 04:25: Sodium 139, Potassium 3.6, Chloride 105, Carbon Dioxide 24.0, Anion Gap 10, BUN 12, Creatinine 0.88, Est GFR (MDRD) Af Amer 113, Est GFR (MDRD ) Non-Af 93, BUN/Creatinine Ratio 13.6, Glucose 121 H, Calcium 8.5, Total Bilirubin 1.00, Triglycerides 121, Cholesterol 135, LDL Cholesterol 81, VLDL Cholesterol 24, HDL Cholesterol 30 L Rhythm: Normal sinus rhythm Assessment/Plan 1. Anterior ST elevation myocardial infarction status post drug-eluting stent placement to the mid left anterior descending artery. Stable. Continue dual antiplatelet medications. Continue beta blockers, CESAR inhibitors and Aldactone 2. Impaired LV systolic function secondary to #1 above. For echocardiogram today. Continue beta blockers CESAR inhibitors and Aldactone 3. Hypertension. Controlled 4. Diabetes mellitus. Newly diagnosed. Manage as per internal medicine 5. Dyslipidemia. Manage as per internal medicine May transfer to the stepdown unit today
--- NOTE | 2018-01-16 11:00 | EKG12_ITS ---
Test Reason : AM EKG Blood Pressure : / mmHG Vent. Rate : 085 BPM Atrial Rate : 085 BPM P-R Int : 154 ms QRS Dur : 084 ms QT Int : 432 ms P-R-T Axes : 004 -03 081 degrees QTc Int : 514 ms Normal sinus rhythm Septal infarct , age undetermined T wave abnormality, consider anterolateral ischemia Prolonged QT Abnormal ECG When compared with ECG of 15-JAN-2018 11:20, MANUAL COMPARISON REQUIRED, DATA IS UNCONFIRMED Confirmed by RANDAL MULLER, NASRA ([id number]), marketing editor ROBYN WOLFE ([id number]) on 01/18/2018 1:48:18 PM Referred By: Priyank Sheikh Confirmed By:NASRA TEE MD
[2018-01-16] MEDS: Spironolactone 25 MG Tablet 12.5 MG PO (11:11)
[2018-01-16] MEDS: Carvedilol 3.125 MG TABLET PO (11:12)
[2018-01-16] MEDS: TICAGRELOR 90 MG TABLET PO ×2 (11:12→21:35)
[2018-01-16] MEDS: Lisinopril 2.5 MG Tablet PO (11:12)
--- NOTE | 2018-01-16 13:03 | PCM.PN.BLA ---
Progress Note Patient is schedule for a post PCI office follow-up with the [facility] on February at 1:30 PM with Claudio Ashby Nurse Practitioner.
[2018-01-16 13:16] LABS: Bedside Glucose 116 mg/dL (70-110)
[2018-01-16 16:40] LABS: Bedside Glucose 131 mg/dL (70-110)
[2018-01-16] MEDS: Atorvastatin Calcium 40 MG Tablet PO (21:35)
[2018-01-16 21:46] LABS: Bedside Glucose 103 mg/dL (70-110)
[2018-01-17 03:01] VITALS: BP 95/61; PULSE 90; RESP 14; TEMP 36.7; O2SAT 93
[2018-01-17 03:05] VITALS: PULSE 80
--- NOTE | 2018-01-17 05:55 | EKG12_ITS ---
Test Reason : AM EKG Blood Pressure : / mmHG Vent. Rate : 093 BPM Atrial Rate : 093 BPM P-R Int : 164 ms QRS Dur : 080 ms QT Int : 406 ms P-R-T Axes : 060 000 114 degrees QTc Int : 504 ms Normal sinus rhythm Anteroseptal infarct , age undetermined T wave abnormality, consider lateral ischemia Prolonged QT Confirmed by RANDAL MULLER, NASRA ([id number]), film editor supervisor ROBYN WOLFE ([id number]) on 01/23/2018 3:28:18 PM Referred By: Priyank Sheikh Confirmed By:NASRA TEE MD
[2018-01-17 06:56] VITALS: PULSE 84
[2018-01-17] MEDS: Enoxaparin 40 MG/0.4 ML Syringe SC (07:00)
[2018-01-17 07:11] LABS: Bedside Glucose 124 mg/dL (70-110)
[2018-01-17 08:09] VITALS: O2SAT 93
[2018-01-17 09:00] VITALS: BP 114/99; PULSE 105; RESP 16; TEMP 36.8; O2SAT 95
--- NOTE | 2018-01-17 09:07 | PCM.DC ---
- Discharge Diagnoses Current Active Problems: Current Active and Chronic Problems STEMI (ST elevation myocardial infarction) (Acute) Glaucoma (Chronic) Hyperglycemia (Acute) FH ischemic heart disease (Chronic) Obesity (Chronic) Reason(s) for Visit for Discharge Instructions: Chest pain You will use the following diet at home:: Calorie/Carbohydrate Controlled (specify 1200, 1400, etc), Cardiac Your food should be the consistency of: Regular Your liquids should be the consistency of: Regular/Thin Discharge Activity: Return to Normal Activity Additional Instructions: Take all your medications as prescribed. Monitor your blood sugar every morning. Follow-up with your PCP and pattern attendant. Come back to the ED if you get any more chest pain or you notice bleeding whilst on medications. Allergies/Adverse Reactions: Allergies NSAIDS (Non-Steroidal Anti-Inflamma Allergy (Verified 01/15/18 09:41) Swelling Medications to take at Discharge Latanoprost 0.005% [Xalatan Opthalmic] 1 drop EACH EYE DAILY 01/16/18 Aspirin E.C. [Ecotrin] 81 mg PO DAILY@0800 #30 tab 01/17/18 Atorvastatin Calcium [Lipitor] 40 mg PO QHS #30 tab 01/17/18 Carvedilol [Coreg (Beta Brenda)] 3.125 mg PO BID #60 tab 01/17/18 Latanoprost 0.005% [Xalatan Opthalmic] 1 drp EACH EYE DAILY #30 bottle 01/17/18 Lisinopril [Zestril] 2.5 mg PO DAILY #30 tab 01/17/18 Metformin HCl [Glucophage] 500 mg PO DAILYCM #30 tab 01/17/18 Spironolactone [Aldactone] 12.5 mg PO DAILY #30 tab 01/17/18 Ticagrelor [Brilinta] 90 mg PO BID #30 tab 01/17/18 The following prescriptions were given: Aspirin E.C. [Ecotrin] 81 mg PO DAILY@0800 #30 tab Atorvastatin Calcium [Lipitor] 40 mg PO QHS #30 tab Latanoprost 0.005% [Xalatan Opthalmic] 1 drp EACH EYE DAILY #30 bottle Lisinopril [Zestril] 2.5 mg PO DAILY #30 tab Metformin HCl [Glucophage] 500 mg PO DAILYCM #30 tab Spironolactone [Aldactone] 12.5 mg PO DAILY #30 tab Carvedilol [Coreg (Beta Brenda)] 3.125 mg PO BID #60 tab Ticagrelor [Brilinta] 90 mg PO BID #30 tab Primary Care Physician: Frank Gerardo DO [Primary Care Provider] - Please follow up with your Primary Care Physician in: within 2 weeks Please Follow Up With: Priyank Sheikh MD When: as scheduled Proposed Discharge Date: 01/17/18
--- NOTE | 2018-01-17 09:14 | DCINST_ITS ---
- Discharge Diagnoses Current Active Problems: Current Active and Chronic Problems STEMI (ST elevation myocardial infarction) (Acute) Glaucoma (Chronic) Hyperglycemia (Acute) FH ischemic heart disease (Chronic) Obesity (Chronic) Reason(s) for Visit for Discharge Instructions: Chest pain You will use the following diet at home:: Calorie/Carbohydrate Controlled ( specify 1200, 1400, etc), Cardiac Your food should be the consistency of: Regular Your liquids should be the consistency of: Regular/Thin Discharge Activity: Return to Normal Activity Additional Instructions: Take all your medications as prescribed. Monitor your blood sugar every morning. Follow-up with your PCP and cds sales advisor. Come back to the ED if you get any more chest pain or you notice bleeding whilst on medications. Allergies/Adverse Reactions: Allergies NSAIDS (Non-Steroidal Anti-Inflamma Allergy (Verified 01/15/18 09:41) Swelling Medications to take at Discharge Latanoprost 0.005% [Xalatan Opthalmic] 1 drop EACH EYE DAILY 01/16/18 Aspirin E.C. [Ecotrin] 81 mg PO DAILY@0800 #30 tab 01/17/18 Atorvastatin Calcium [Lipitor] 40 mg PO QHS #30 tab 01/17/18 Carvedilol [Coreg (Beta Brenda)] 3.125 mg PO BID #60 tab 01/17/18 Latanoprost 0.005% [Xalatan Opthalmic] 1 drp EACH EYE DAILY #30 bottle 01/17/18 Lisinopril [Zestril] 2.5 mg PO DAILY #30 tab 01/17/18 Metformin HCl [Glucophage] 500 mg PO DAILYCM #30 tab 01/17/18 Spironolactone [Aldactone] 12.5 mg PO DAILY #30 tab 01/17/18 Ticagrelor [Brilinta] 90 mg PO BID #30 tab 01/17/18 The following prescriptions were given: Aspirin E.C. [Ecotrin] 81 mg PO DAILY@0800 #30 tab Atorvastatin Calcium [Lipitor] 40 mg PO QHS #30 tab Latanoprost 0.005% [Xalatan Opthalmic] 1 drp EACH EYE DAILY #30 bottle Lisinopril [Zestril] 2.5 mg PO DAILY #30 tab Metformin HCl [Glucophage] 500 mg PO DAILYCM #30 tab Spironolactone [Aldactone] 12.5 mg PO DAILY #30 tab Carvedilol [Coreg (Beta Brenda)] 3.125 mg PO BID #60 tab Ticagrelor [Brilinta] 90 mg PO BID #30 tab Primary Care Physician: Frank Gerardo DO [Primary Care Provider] - Please follow up with your Primary Care Physician in: within 2 weeks Please Follow Up With: Priyank Sheikh MD When: as scheduled Proposed Discharge Date: 01/17/18
--- NOTE | 2018-01-17 09:45 | PCM.PN.CARD ---
Subjectve: No complaints. Ambulating. Objective: Vital Signs Temp Pulse Resp BP Pulse Ox 98.2 F 105 H 16 114/99 H 95 01/17/18 09:00 01/17/18 09:00 01/17/18 09:00 01/17/18 09:00 01/17/18 09:00 Oxygen Delivery Method Room Air Weight: 113.3 kg Body Mass Index (BMI) 36.6 Intake and Output for Last 24 Hours 01/15/18 01/16/18 01/17/18 23:59 23:59 23:59 Intake Total 465.9 / 465.9 340 / 340 Output Total 1625 / 1625 1325 / 1325 Balance -1159.1 / -1159.1 -985 / -985 General: Healthy Appearing, Awake, Alert, Oriented x 3 Neck: No JVD Lungs: Clear to auscultation Cardiovascular: Normal S1, Normal S2 Extremities: No edema Rhythm: EKG: ECHO: Stress Test: Cardiac Cath: PCI: CT Surgery: Holter monitor: EPS: PPM: CXR: Chest CT Scan: Assessment/Plan 1. Anterior ST elevation myocardial infarction status post drug-eluting stent placement to the mid left anterior descending artery. Stable. Continue dual antiplatelet medications. Continue beta blockers, CESAR inhibitors and Aldactone 2. Impaired LV systolic function secondary to #1 above. Ejection fraction 40% on echocardiogram. Continue beta blockers CESAR inhibitors and Aldactone 3. Hypertension. Controlled 4. Diabetes mellitus. Newly diagnosed. Manage as per internal medicine 5. Dyslipidemia. Manage as per internal medicine Okay to DC home. Follow-up as outpatient
[2018-01-17] MEDS: Latanoprost 0.005% 1 Bottle 1 DRP EACH EYE (09:50)
[2018-01-17] MEDS: Lisinopril 2.5 MG Tablet PO (09:50)
[2018-01-17] MEDS: Spironolactone 25 MG Tablet 12.5 MG PO (09:51)
[2018-01-17] MEDS: Aspirin E.C. 81 MG Tablet PO (09:51)
[2018-01-17] MEDS: Carvedilol 3.125 MG TABLET PO (09:51)
[2018-01-17] MEDS: TICAGRELOR 90 MG TABLET PO (09:51)
--- NOTE | 2018-01-17 12:43 | PCM.DC.SUM ---
Discharge Date and Diagnosis Date of Admission: 01/15/18 Date of Discharge: 01/17/18 - Primary Discharge Diagnosis Acute anterior STEMI - Secondary Discharge Diagnosis Chronic Problems Glaucoma (Chronic) FH ischemic heart disease (Chronic) Obesity (Chronic) Hospital Course and Treatment Imaging Results: Clinical Impression(s) from Imaging Studies Chest X-Ray 01/15/18 09:35 IMPRESSION: No evidence for focal airspace disease or pneumothorax. Mild pulmonary vascular congestion. Electronically Signed: Juan Pal, at 10:13 EST Tel , Service support , Cardiology Operations: None Procedures: Cardiac catheterization Summary of Care Provided: 62-year-old male with PMHx of obesity, family history of cardiovascular disease, admitted on 01/15/2018 with complaints of chest pain and EKG shows anterior STEMI and was taken to the pathology lab technician. Findings include 99% mid LAD lesion and he is status post thrombectomy and IRENE. 1. Acute STEMI status post PCI/thrombectomy and stent to mid-LAD, aspirin, on statin, beta-brenda, CARRINGTON inhibitor, spironolactone, Brilinta. Lipid Profile showed Total cholesterol 135, LDL of 81, HDL 30, triglycerides 121, will follow-up with cardiology and PCP. 2. Ischemic cardiomyopathy, EF of 35-40%, 2D-echo shows anterior wall motion abnormalities, status post recent PCI/stents, on CARRINGTON inhibitor, spironolactone, beta-brenda, aspirin, brilinta 3. Type II DM, newly diagnosed, HbA1c is 6.4, dietitian to educated on diet, started on metformin 500mg po daily, given glucometer, strips, lancets etc, needs to follow-up with PCP with blood glucose readings. 4. Obesity, diet and exercises recommended. Discharge Diet: Low fat/ Low Cholesterol, 2000 mg Sodium Diet Discharge Activity: Return to Normal Activity Home Medications: Medications to take at Discharge Latanoprost 0.005% [Xalatan Opthalmic] 1 drop EACH EYE DAILY 01/16/18 Aspirin E.C. [Ecotrin] 81 mg PO DAILY@0800 #30 tab 01/17/18 Atorvastatin Calcium [Lipitor] 40 mg PO QHS #30 tab 01/17/18 Carvedilol [Coreg (Beta Brenda)] 3.125 mg PO BID #60 tab 01/17/18 Latanoprost 0.005% [Xalatan Opthalmic] 1 drp EACH EYE DAILY #30 bottle 01/17/18 Lisinopril [Zestril] 2.5 mg PO DAILY #30 tab 01/17/18 Metformin HCl [Glucophage] 500 mg PO DAILYCM #30 tab 01/17/18 Spironolactone [Aldactone] 12.5 mg PO DAILY #30 tab 01/17/18 Ticagrelor [Brilinta] 90 mg PO BID #30 tab 01/17/18 Following Prescrptions Were Given to Patient: Aspirin E.C. [Ecotrin] 81 mg PO DAILY@0800 #30 tab Atorvastatin Calcium [Lipitor] 40 mg PO QHS #30 tab Latanoprost 0.005% [Xalatan Opthalmic] 1 drp EACH EYE DAILY #30 bottle Lisinopril [Zestril] 2.5 mg PO DAILY #30 tab Metformin HCl [Glucophage] 500 mg PO DAILYCM #30 tab Spironolactone [Aldactone] 12.5 mg PO DAILY #30 tab Carvedilol [Coreg (Beta Brenda)] 3.125 mg PO BID #60 tab Ticagrelor [Brilinta] 90 mg PO BID #30 tab Other Amb Orders: Glucometer Location: None Selected Primary Care Physician: Frank Gerardo DO [Primary Care Provider] - Please follow up with your Primary Care Physician in: within 2 weeks Please Follow Up With: Priyank Sheikh MD When: as scheduled Disposition: Home Minutes spent on discharge:: 25 Patient Condition:: Stable Meaningful Use Info Meaningful Use Diagnoses (Choose all that apply): AMI - AMI Aspirin given w/in 24hrs of arrival?: Yes ASA at discharge?: Yes Statins at discharge?: Yes Carrington/ARB at discharge?: Yes Beta Brenda at discharge?: Yes Done w/ Acute AL measure.: Yes Code Visit Inpatient E&M: 13219 Disch Hosp
--- NOTE | 2018-01-17 12:48 | DS.PCM_ITS ---
Discharge Date and Diagnosis Date of Admission: 01/15/18 Date of Discharge: 01/17/18 - Primary Discharge Diagnosis Acute anterior STEMI - Secondary Discharge Diagnosis Chronic Problems Glaucoma (Chronic) FH ischemic heart disease (Chronic) Obesity (Chronic) Hospital Course and Treatment Imaging Results: Clinical Impression(s) from Imaging Studies Chest X-Ray 01/15/18 09:35 IMPRESSION: No evidence for focal airspace disease or pneumothorax. Mild pulmonary vascular congestion. Electronically Signed: Juan Pal, at 10:13 EST Tel , Service support , Cardiology Operations: None Procedures: Cardiac catheterization Summary of Care Provided: 62-year-old male with PMHx of obesity, family history of cardiovascular disease , admitted on 01/15/2018 with complaints of chest pain and EKG shows anterior STEMI and was taken to the clinical laboratory manager. Findings include 99% mid LAD lesion and he is status post thrombectomy and IRENE. 1. Acute STEMI status post PCI/thrombectomy and stent to mid-LAD, aspirin, on statin, beta-brenda, CARRINGTON inhibitor, spironolactone, Brilinta. Lipid Profile showed Total cholesterol 135, LDL of 81, HDL 30, triglycerides 121 , will follow-up with cardiology and PCP. 2. Ischemic cardiomyopathy, EF of 35-40%, 2D-echo shows anterior wall motion abnormalities, status post recent PCI/stents, on CARRINGTON inhibitor, spironolactone, beta-brenda, aspirin, brilinta 3. Type II DM, newly diagnosed, HbA1c is 6.4, dietitian to educated on diet, started on metformin 500mg po daily, given glucometer, strips, lancets etc, needs to follow-up with PCP with blood glucose readings. 4. Obesity, diet and exercises recommended. Discharge Diet: Low fat/ Low Cholesterol, 2000 mg Sodium Diet Discharge Activity: Return to Normal Activity Home Medications: Medications to take at Discharge Latanoprost 0.005% [Xalatan Opthalmic] 1 drop EACH EYE DAILY 01/16/18 Aspirin E.C. [Ecotrin] 81 mg PO DAILY@0800 #30 tab 01/17/18 Atorvastatin Calcium [Lipitor] 40 mg PO QHS #30 tab 01/17/18 Carvedilol [Coreg (Beta Brenda)] 3.125 mg PO BID #60 tab 01/17/18 Latanoprost 0.005% [Xalatan Opthalmic] 1 drp EACH EYE DAILY #30 bottle 01/17/18 Lisinopril [Zestril] 2.5 mg PO DAILY #30 tab 01/17/18 Metformin HCl [Glucophage] 500 mg PO DAILYCM #30 tab 01/17/18 Spironolactone [Aldactone] 12.5 mg PO DAILY #30 tab 01/17/18 Ticagrelor [Brilinta] 90 mg PO BID #30 tab 01/17/18 Following Prescrptions Were Given to Patient: Aspirin E.C. [Ecotrin] 81 mg PO DAILY@0800 #30 tab Atorvastatin Calcium [Lipitor] 40 mg PO QHS #30 tab Latanoprost 0.005% [Xalatan Opthalmic] 1 drp EACH EYE DAILY #30 bottle Lisinopril [Zestril] 2.5 mg PO DAILY #30 tab Metformin HCl [Glucophage] 500 mg PO DAILYCM #30 tab Spironolactone [Aldactone] 12.5 mg PO DAILY #30 tab Carvedilol [Coreg (Beta Brenda)] 3.125 mg PO BID #60 tab Ticagrelor [Brilinta] 90 mg PO BID #30 tab Other Amb Orders: Glucometer Location: None Selected Primary Care Physician: Frank Gerardo DO [Primary Care Provider] - Please follow up with your Primary Care Physician in: within 2 weeks Please Follow Up With: Priyank Sheikh MD When: as scheduled Disposition: Home Minutes spent on discharge:: 25 Patient Condition:: Stable Meaningful Use Info Meaningful Use Diagnoses (Choose all that apply): AMI - AMI Aspirin given w/in 24hrs of arrival?: Yes ASA at discharge?: Yes Statins at discharge?: Yes Carrington/ARB at discharge?: Yes Beta Brenda at discharge?: Yes Done w/ Acute NM measure.: Yes Code Visit Inpatient E&M: [id number] Disch Hosp
== END 2018-01-17 11:37 | disposition home or self-care (01) | DRG 247 ==
LOC: ED 09:34 → ICU 19:09 → PCU 01-16 15:53
PROVIDERS: Emergency Medicine; Internal Medicine Cardiovascular Disease; Admitting Provider Internal Medicine; Emergency Provider Emergency Medicine; Family Provider Family Medicine; PCP Family Medicine; Visit Provider Internal Medicine
DX: I21.09 ST elevation (STEMI) myocardial infarction involving other coronary artery of anterior wall (principal); E11.9 Type 2 diabetes mellitus without complications; E66.9 Obesity, unspecified; I25.5 Ischemic cardiomyopathy; Z68.36 Body mass index [BMI] 36.0-36.9, adult; H40.9 Unspecified glaucoma; Z82.49 Family history of ischemic heart disease and other diseases of the circulatory system; I10 Essential (primary) hypertension
CPT/HCPCS: 71045; 80048; 80053; 80061; 80076; 82962; 83036; 83735; 84484; 85025; 85347; 85610; 85730; 87641; 92941; 92978; 93005; 93306; 93458; 97802; 99152; 99153; 99285; J3010; J7030; Q9957; Q9967; A4216; C1725; C1753; C1757; C1769; C1874; C1887; C1894; C8929; C9606; J0583

== ENCOUNTER → 2018-01-25 12:06 | Outpatient (CLI) | payer OTHER, SELFPAY ==
--- NOTE | 2018-01-25 12:51 | PCM.CR.ITP ---
Exercise - Initial Assessment - Visit Date of Eval: 01/25/18 - initail visit - Stages of Change Stages of Change:: Contemplate - Exercise Prescription Mode:: Treadmill, Biodyne, Rower, Airdyne, NuStep, Arm Ergometer Angina with exercise?: No - Hypertension Do any of the following apply?: Yes Resting Blood Pressure:: 112/70 - Intervention Home Exercise/Activity Goal:: Sitting Time <3 hrs/day - Education Goals:: Warm-up, RPE ANUM Scale, S/S, Safe Exercise, Self-Monitoring - Exercise Program Goals Exercise Program Goals: Aerobic Activity >30 min, B/P <140/90 Nutrition - Initial Assessment - Program Goals Nutrition Program Goals: LDL <70. Total Cholesterol <200. HDL >45. Triglycerides <150. HgbA1C <7%. BMI <25 - Visit Date of Assessment:: 01/25/18 - Stages of Change Stages of Change:: Contemplate - Diabetes Diabetes:: No Hgb A1C: 6.4 - Weight Management Height: 1.78 m Weight:: 112.491 kg Total Score:: 4 - Intervention Referral to dietitian:: No Referral to Diabetic Clinic:: No Will attend diet classes:: Yes - Education Gave educational materials for:: Signs & symptoms of hypoglycemia, Signs & symptoms of hyperglycemia, Relate diabetes to coronary artery disease, Healthy eating Nutrition - 30-Day Assessment - Program Goals Nutrition Program Goals: LDL <70. Total Cholesterol <200. HDL >45. Triglycerides <150. HgbA1C <7%. BMI <25 - Diabetes Diabetes:: No Hgb A1C: 6.4 Nutrition - 60-Day Assessment - Program Goals Nutrition Program Goals: LDL <70. Total Cholesterol <200. HDL >45. Triglycerides <150. HgbA1C <7%. BMI <25 - Diabetes Diabetes:: No Hgb A1C: 6.4 Nutrition - 90-Day Assessment - Program Goals Nutrition Program Goals: LDL <70. Total Cholesterol <200. HDL >45. Triglycerides <150. HgbA1C <7%. BMI <25 - Diabetes Diabetes:: No Hgb A1C: 6.4 Nutrition - Final Assessment - Program Goals Nutrition Program Goals: LDL <70. Total Cholesterol <200. HDL >45. Triglycerides <150. HgbA1C <7%. BMI <25 - Diabetes Diabetes:: No Hgb A1C: 6.4 Tobacco - Initial Assessment - Program Goals Tobacco Program Goals: Complete smoking cessation. Attend education classes. Improve Knowledge Test score - Stage of Change Stages of Change:: Contemplate - Learning Barriers Learning Barriers: Vision Total Score:: 7 - Family Support Do you have family support?: Yes - Tobacco Use Tobacco Use: Non-smoker Do you use smokeless tobacco?: No - Intervention Smoking Cessation Referral:: No Individual Education/Counseling:: No Education Schedule Given:: Yes - Education Gave educational material for:: Tobacco triggers, Coronary artery disease, Risk factors, Sexuality, Medical compliance, Cardiac A&P, Angina signs & symptoms Psychosocial - Initial Assess - Target Goals Target Goals: Assess presence or absence of depression. Using a valid screening tool, maximizes coping skills. Positive support system - Stages of Change Stages of Change:: Contemplate - Psychosocial Test Tool Used:: HANDS Depression Questionnaire Total Mood Screening Score:: 4 Self-Efficacy Score:: 8 - Intervention PS - Interventions: Yes Attend Stress Management Classes, Yes Uses Stress Management Skills, No Referral to Mental Health, No Referral to [facility] Case Management, No Referral to Physician - Education Gave educational materials for:: Coping techniques, Signs & symptoms of depression, Stress management, Relaxation techniques - Patient/Program Goal Preventative Medication(s):: Aspirin, CESAR inhibitor, Clopidogrel, Beta sary, Statin/lipid - Assistive Devices Assistive Devices:: None Fall Risk Assessed:: Yes Patient Health Questionnaire Initial Assessment 1. Little interest or pleasure in doing things: Several days 2. Feeling down, depressed, or hopeless: Several days 3. Trouble falling or staying asleep, or sleeping too much: Not at all 4. Feeling tired or having little energy: Not at all 5. Poor appetite or overeating: Several days 6. Feeling bad about yourself -- or that you are a failure or have let yourself or your family down: Not at all 7. Trouble concentrating on things, such as reading the newspaper or watching television: Several days 8. Moving or speaking so slowly that other people could have noticed. Or the opposite - being so fidgety or restless that you have been moving around a lot more than usual: Not at all 9. Thoughts that you would be better off , or of hurting yourself in some way: Not at all Total Score: 4 Knowledge Test - Check your knowledge Initial The #1 cause of in the [place] each year is:: Cancer Which of the following is a common treatment for heart disease?: All of the above The arteries that feed the heart are called:: Coronary arteries HDL cholesterol is known as the good cholesterol.: True What disease increases your risk for heart disease?: Diabetes What food product raises blood cholesterol level the most?: Cholesterol The bad cholesterol in the blood is called:: LDL Hypertension is another word for:: High stress A blood pressure reading of 148/88 is considered normal.: False Exercise will only benefit your health when your heart rate reaches a target level.: False Total Score:: 7 Self-Efficacy Initial Assessment We would like to know how confident you are in doing certain activities. Please select your confidence level for:: Select your confidence level for the following using the scale 1-10 where 1 is not at all confident and 10 is totally confident. Your score is the average of all 6 responses. Fatigue: How confident are you that you can keep the fatigue caused by your disease from interfering with the things you want to do? Select Number: 8 Physical Discomfort or Pain: How confident are you that you can keep the physical discomfort or pain of your disease from interfering with the things you want to do? Select Number: 8 Emotional Distress: How confident are you that you can keep the emotional distress caused by your disease from interfering with the things you want to do? Select Number: 8 Other Symptoms or Health Problems: How confident are you that you can keep other symptoms or health problems from interfering with the things you want to do? Select Number: 7 Different Tasks and Activities: How confident are you that you can do the different tasks and activities needed to manage your health condition so as to reduce your need to see a doctor? Select Number: 8 Medication: How confident are you that you can do things other than just taking medication to reduce how much your illness affects your everyday life? Select Number: 9 Total Score:: 8 Nutrition Survey - Nutrition Survey Instructions Scoring Instructions: Scoring is as follows: Yes = 1 points. No = 0 point. Patient score that is >/=12 is considered to be at potential nutritional risk and could benefit from a referral to a registered dietitian. - Nutrition Survey Initial Have you lost >10 lbs over the past 2 months without trying?: No Are you following a special diet at home for diabetes, low fat, or low salt?: Yes Are you interested in meeting with a dietitian for help understanding your diet?: Yes Do you eat less than 3 meals a day?: No Do you eat fatty meats (ambrose, sausage, ribs, etc), fried foods, desserts, large amounts of salad dressings, margarine, butter, or cheese most days?: No Do you have food allergies? [Enter types in comment field]: No Do you eat in restaurants more than 3 times a week?: No Do you season food with salt, seasoning salt, or garlic salt?: Yes Do you used canned, boxed, frozen meals, or soups, seasoning packets?: Yes Total Score:: 4 Cardiac Rehabilitation Goals - Cardiac Rehab Goals Cardiac Rehabilitation Goals: 1. Maintain the individual as the primary focus of care. 2. To improve the patient's quality of life. 3. Identification of cardiac risk factors and provide cardiac risk factor management. 4. Enhance the psychosocial status of the patient. 5. Reconditioning enough to allow the patient to resume customary activities. 6. Control symptoms of cardiac disease - Scale Scale for measuring improvement of personal goals: Enter appropriate number in Comments. 2 = Unchanged. 3 = Slightly Better. 4 = Moderate Improvement. 5 = Met my Goal Initial Assessment Personal Goals: 30-day Re-assessment: Improve management of stress and emotions, Improve energy level, Participate in home exercise program, Get back to work, or to resume activities faster, Improve knowledge of cardiac disease, Improve muscle strength and endurance, Improve diet and eating habits (eat healthier), Control risk factors (learn risk factor modification)
--- NOTE | 2018-01-25 12:51 | PCM.CR.HP2 ---
CR - History & Physical - General Arrival date:: 01/25/18 - 3 Arrival time:: 12:52 Referring Physician: Dr. Kaur Primary Diagnosis: Z95.5 01/15/2018 - History of Present Cardiac Event Onset Date: Enter Onset Date of cardiac illnesses in Comment field below Angina:: Yes [place]:: Yes PTCA:: Yes - Medications Home Medications: Ambulatory Orders Medication Instructions Recorded Latanoprost 0.005% [Xalatan 1 drop EACH EYE DAILY 01/16/18 Opthalmic] Aspirin E.C. [Ecotrin] 81 mg PO DAILY@0800 #30 tab 01/17/18 Atorvastatin Calcium [Lipitor] 40 mg PO QHS #30 tab 01/17/18 Carvedilol [Coreg (Beta Brenda)] 3.125 mg PO BID #60 tab 01/17/18 Latanoprost 0.005% [Xalatan 1 drp EACH EYE DAILY #30 bottle 01/17/18 Opthalmic] Lisinopril [Zestril] 2.5 mg PO DAILY #30 tab 01/17/18 Metformin HCl [Glucophage] 500 mg PO DAILYCM #30 tab 01/17/18 Spironolactone [Aldactone] 12.5 mg PO DAILY #30 tab 01/17/18 Ticagrelor [Brilinta] 90 mg PO BID #30 tab 01/17/18 - Allergies Allergies/Adverse Reactions: Allergies NSAIDS (Non-Steroidal Anti-Inflamma Allergy (Verified 01/15/18 09:41) Swelling - Sleep Disorder Evaluation Hx of Sleep Apnea: No Do you snore loudly (louder than talking or can be heard through closed doors)?: Yes Do you often feel tired/ fatigued/ sleepy during daytime?: No Has anyone observed you stop breathing during sleep?: Yes History of Hypertension (for STOP score): Yes - decline for now STOP Results: Positive Advanced Directives - Advanced Directives Power of Mental Health Therapist: Yes Living Will: Yes Advance Directives Information Provided: Yes Advance Directives on File: No DNR Order?:: No Past Medical History - Problems and Co-Morbidities Problems & Co-Morbidities: Dyslipidemia, Diabetes, Obesity, Hypertension - Other Other: Vision/Eye Problems - Cardiology Procedures/Interventions Cardiology Procedures/Interventions: PCI w/Stenting, Heart Catheterization, Echocardiogram - Past Surgical History Surgical History: no surgical history - Family History Summary Family History: Heart Disease: Maternal, Paternal, Sibling Review of Systems - Review of Systems Hints: Right click = Denies (Slash). Left click = Reports ([place]) Review of Present Symptoms: Reports: Angina, Appetite - Normal, Appetite - Special Diet, Sleep - Normal. Denies: Shortness of Breath at Rest, Shortness of Breath with Exertion, PVD, Operative Discomfort, Wound Healing, Dizziness/Lightheadedness, Fatigue, Heart Arrhythmia/Irregularities, Sexual Changes Risk Factor Assessment - Chief Complaint Chief Complaint: CP - Pulse Pulse Rate: 96 - 97% SPO2 Pulse Rhythm: Regular - Hypertension Blood Pressure Sitting - Right Arm: 112/70 - Stress Stress: Work-related - Diabetes Diabetic History: Type II Nutrition Referral for Diabetes: No - Obesity Height: 1.78 m Weight:: 112.491 kg Weight in Pounds: 248.0 lbs Body Mass Index (BMI): 35.6 Nutritional Referral for Obesity: No - Physical Inactivity Physical Inactivity: Reg Exercise 30 min/day, Physically demanding job, Recreational activity, None - Risk Stratification Risk Guidelines: Lowest Risk: Risk Factor for Smoking, Risk Factor for Depression, Moderate Risk: Risk Factor for Dyslipidemia, Risk Factor for Diabetes, Risk Factor for Obesity, Risk Factor for Hypertension, Risk Factor for Sedentary Lifestyle - For Smoking Smoking Risk Guidelines: Smoking Low Risk: None or quit greater than 6 months ago. Smoking Moderate Risk: Smoker or quit 6 months or less ago. Smoking High Risk: Smoker - For Dyslipidemia Dyslipidemia Risk Guidelines: Low Risk: Moderate Risk: High Risk: 15-25% fat 25.1-29% fat >/= 30% fat. <7% sat fat 7-9% sat fat >9% sat fat. <150 mg chol 150-299 mg chol >/= 300 mg chol. LDL <100 LDL 100-129 LDL >/= 130. Chol/HDL ratio <5.0 Chol/HDL ratio 5.0-6.0 Chol/HDL ratio >6.0. Triglycerides <100 Triglycerides 100-149 Triglycerides >/= 150 - For Diabetes Mellitus Diabetes Risk Guidelines: Diabetes Low Risk: HgA1c <6.5% and/or FBG <120. Diabetes Moderate Risk: HgA1c 6.6-7.9% and/or FBG 120-180. Diabetes High Risk: HgA1c >/= 8% and/or FBG >180 - For Obesity/Overweight Obesity/Overweight Risk Guidelines: Obesity Low Risk: BMI <25.0. Obesity Moderate Risk: BMI 25-29.9. Obesity High Risk: BMI >/= 30.0 - For Hypertension Hypertension Risk Guidelines: Hypertension Low Risk: Systolic <120 and Diastolic <80. Hypertension Moderate Risk: Systolic 120-139 and Diastolic 80-89. Hypertension High Risk: Systolic >/= 140 and Diastolic >/= 90 - For Sedentary Lifestyle Sedentary Lifestyle Risk Guidelines: Sedentary Lifestyle Low Risk: >/= 1,500 kcal/week. Sedentary Lifestyle Moderate Risk: 700-1,499 kcal/week. Sedentary Lifestyle High Risk: < 700 kcal/week - For Depression Depression Risk Guidelines: Depression Low Risk: Not clinically depressed. Depression Moderate Risk: Mildly depressed. Depression High Risk: Clinically depressed Social History - Smoking History Smoking Status: Never smoker Hx Tobacco Use: No Hx Smoking Exposure: No - Alcohol Use Alcohol Usage: No - Substance Abuse Hx Substance Use: No - Occupation Occupation (List type of work in comments):: Employed Hours worked per day:: 13 - Hobbies, Recreation, Social Activities Hobbies: Reading, Other - work, music Recreational Activities: I am able to engage in most, but not all activities Marital Status - Status Marital Status: - Current Living Arrangements Living Environment:: Spouse - Children Do any of your children live nearby?: No - Safety Do you feel safe in your surroundings?: Yes - Assistance Do you need any assistance at home?: none
--- NOTE | 2018-01-25 13:03 | CR.HP_ITS ---
CR - History & Physical - General Arrival date:: 01/25/18 - 3 Arrival time:: 12:52 Referring Physician: Dr. Kaur Primary Diagnosis: Z95.5 01/15/2018 - History of Present Cardiac Event Onset Date: Enter Onset Date of cardiac illnesses in Comment field below Angina:: Yes [place]:: Yes PTCA:: Yes - Medications Home Medications: Ambulatory Orders Medication Instructions Recorded Latanoprost 0.005% [Xalatan 1 drop EACH EYE DAILY 01/16/18 Opthalmic] Aspirin E.C. [Ecotrin] 81 mg PO DAILY@0800 #30 tab 01/17/18 Atorvastatin Calcium [Lipitor] 40 mg PO QHS #30 tab 01/17/18 Carvedilol [Coreg (Beta Brenda)] 3.125 mg PO BID #60 tab 01/17/18 Latanoprost 0.005% [Xalatan 1 drp EACH EYE DAILY #30 bottle 01/17/18 Opthalmic] Lisinopril [Zestril] 2.5 mg PO DAILY #30 tab 01/17/18 Metformin HCl [Glucophage] 500 mg PO DAILYCM #30 tab 01/17/18 Spironolactone [Aldactone] 12.5 mg PO DAILY #30 tab 01/17/18 Ticagrelor [Brilinta] 90 mg PO BID #30 tab 01/17/18 - Allergies Allergies/Adverse Reactions: Allergies NSAIDS (Non-Steroidal Anti-Inflamma Allergy (Verified 01/15/18 09:41) Swelling - Sleep Disorder Evaluation Hx of Sleep Apnea: No Do you snore loudly (louder than talking or can be heard through closed doors)? : Yes Do you often feel tired/ fatigued/ sleepy during daytime?: No Has anyone observed you stop breathing during sleep?: Yes History of Hypertension (for STOP score): Yes - decline for now STOP Results: Positive Advanced Directives - Advanced Directives Power of Vocational Training Instructor: Yes Living Will: Yes Advance Directives Information Provided: Yes Advance Directives on File: No DNR Order?:: No Past Medical History - Problems and Co-Morbidities Problems & Co-Morbidities: Dyslipidemia, Diabetes, Obesity, Hypertension - Other Other: Vision/Eye Problems - Cardiology Procedures/Interventions Cardiology Procedures/Interventions: PCI w/Stenting, Heart Catheterization, Echocardiogram - Past Surgical History Surgical History: no surgical history - Family History Summary Family History: Heart Disease: Maternal, Paternal, Sibling Review of Systems - Review of Systems Hints: Right click = Denies ([place]). Left click = Reports ([place]) Review of Present Symptoms: Reports: Angina, Appetite - Normal, Appetite - Special Diet, Sleep - Normal. Denies: Shortness of Breath at Rest, Shortness of Breath with Exertion, PVD, Operative Discomfort, Wound Healing, Dizziness/ Lightheadedness, Fatigue, Heart Arrhythmia/Irregularities, Sexual Changes Risk Factor Assessment - Chief Complaint Chief Complaint: CP - Pulse Pulse Rate: 96 - 97% SPO2 Pulse Rhythm: Regular - Hypertension Blood Pressure Sitting - Right Arm: 112/70 - Stress Stress: Work-related - Diabetes Diabetic History: Type II Nutrition Referral for Diabetes: No - Obesity Height: 1.78 m Weight:: 112.491 kg Weight in Pounds: 248.0 lbs Body Mass Index (BMI): 35.6 Nutritional Referral for Obesity: No - Physical Inactivity Physical Inactivity: Reg Exercise 30 min/day, Physically demanding job, Recreational activity, None - Risk Stratification Risk Guidelines: Lowest Risk: Risk Factor for Smoking, Risk Factor for Depression, Moderate Risk: Risk Factor for Dyslipidemia, Risk Factor for Diabetes, Risk Factor for Obesity, Risk Factor for Hypertension, Risk Factor for Sedentary Lifestyle - For Smoking Smoking Risk Guidelines: Smoking Low Risk: None or quit greater than 6 months ago. Smoking Moderate Risk: Smoker or quit 6 months or less ago. Smoking High Risk: Smoker - For Dyslipidemia Dyslipidemia Risk Guidelines: Low Risk: Moderate Risk: High Risk: 15-25% fat 25.1-29% fat >/= 30% fat. <7% sat fat 7-9% sat fat >9% sat fat. <150 mg chol 150-299 mg chol >/= 300 mg chol. LDL <100 LDL 100-129 LDL >/= 130. Chol/HDL ratio <5.0 Chol/HDL ratio 5.0-6.0 Chol/HDL ratio >6.0. Triglycerides <100 Triglycerides 100-149 Triglycerides >/= 150 - For Diabetes Mellitus Diabetes Risk Guidelines: Diabetes Low Risk: HgA1c <6.5% and/or FBG <120. Diabetes Moderate Risk: HgA1c 6.6-7.9% and/or FBG 120-180. Diabetes High Risk: HgA1c >/= 8% and/or FBG >180 - For Obesity/Overweight Obesity/Overweight Risk Guidelines: Obesity Low Risk: BMI <25.0. Obesity Moderate Risk: BMI 25-29.9. Obesity High Risk: BMI >/= 30.0 - For Hypertension Hypertension Risk Guidelines: Hypertension Low Risk: Systolic <120 and Diastolic <80. Hypertension Moderate Risk: Systolic 120-139 and Diastolic 80-89. Hypertension High Risk: Systolic >/= 140 and Diastolic >/= 90 - For Sedentary Lifestyle Sedentary Lifestyle Risk Guidelines: Sedentary Lifestyle Low Risk: >/= 1 ,500 kcal/week. Sedentary Lifestyle Moderate Risk: 700-1,499 kcal/week. Sedentary Lifestyle High Risk: < 700 kcal/week - For Depression Depression Risk Guidelines: Depression Low Risk: Not clinically depressed. Depression Moderate Risk: Mildly depressed. Depression High Risk: Clinically depressed Social History - Smoking History Smoking Status: Never smoker Hx Tobacco Use: No Hx Smoking Exposure: No - Alcohol Use Alcohol Usage: No - Substance Abuse Hx Substance Use: No - Occupation Occupation (List type of work in comments):: Employed Hours worked per day:: 13 - Hobbies, Recreation, Social Activities Hobbies: Reading, Other - work, music Recreational Activities: I am able to engage in most, but not all activities Marital Status - Status Marital Status: - Current Living Arrangements Living Environment:: Spouse - Children Do any of your children live nearby?: No - Safety Do you feel safe in your surroundings?: Yes - Assistance Do you need any assistance at home?: none
[2018-01-25 14:09] LABS: Anion Gap 7 (5-15); BUN 16 mg/dL (7-18); BUN/Creat Ratio 13.3 RATIO (10-20); Calcium,Total 8.7 mg/dL (8.5-10.1); Chloride 103 mmol/L (98-107); EST Glomerular Filtration Rate 65 mL/min (>60); Est Glom Filt Rate - Afr Amer 79 mL/min (>60); Glucose 86 mg/dL (74-106); Potassium 4.4 mmol/L (3.5-5.1); Sodium Level 139 mmol/L (136-145)
[2018-01-25 14:12] VITALS: BP 112/70
[2018-01-25 14:13] VITALS: BP 112/70; PULSE 96; BMI 35.6
== END ==
PROVIDERS: Internal Medicine; Family Provider Family Medicine; PCP Family Medicine; Visit Provider Internal Medicine Cardiovascular Disease
DX: I21.09 ST elevation (STEMI) myocardial infarction involving other coronary artery of anterior wall (principal); H40.9 Unspecified glaucoma; I25.5 Ischemic cardiomyopathy; E66.9 Obesity, unspecified
CPT/HCPCS: 36415; 80048

== ENCOUNTER 2018-02-10 09:15 | Outpatient (RCR) | payer OTHER, SELFPAY ==
[2018-02-06 13:35] VITALS: BP 100/72; BP 140/82
--- NOTE | 2018-02-06 13:35 | CR.ITP_ITS ---
Exercise - Initial Assessment - Stages of Change Stages of Change:: Contemplate - Exercise Prescription Mode:: Treadmill, Biodyne, Rower, Airdyne, NuStep, Arm Ergometer Angina with exercise?: No - Hypertension Do any of the following apply?: Yes - Intervention Home Exercise/Activity Goal:: Sitting Time <3 hrs/day - Education Goals:: Warm-up, RPE ANUM Scale, S/S, Safe Exercise, Self-Monitoring - Exercise Program Goals Exercise Program Goals: Aerobic Activity >30 min, B/P <140/90 Exercise - 30-day Assessment - Visit Date of Eval: 02/06/18 - 01/27/2018-02/03/2018 Session #:: 4 - Stages of Change Stages of Change:: Action - Exercise Prescription Mode:: Treadmill, Airdyne, NuStep Frequency (x/week): 3 Duration:: 30 METs - Progression: 0.5-1 MET as tolerated: 2.5 Target Heart Rate:: 118-126 Max HR 99 - Hypertension Resting Blood Pressure:: 100/72 Peak Exercise Blood Pressure:: 140/82 Medication Changes:: No - Intervention Home Exercise/Activity Goal:: Sitting Time <3 hrs/day - Education Goals:: Warm-up, RPE ANUM Scale, S/S, Safe Exercise, Self-Monitoring - Exercise Program Goals Exercise Program Goals: Aerobic Activity >30 min, B/P <140/90 Exercise - Final/Discharge - Hypertension Do any of the following apply?: Yes Nutrition - Initial Assessment - Program Goals Nutrition Program Goals: LDL <70. Total Cholesterol <200. HDL >45. Triglycerides <150. HgbA1C <7%. BMI <25 - Stages of Change Stages of Change:: Contemplate - Diabetes Diabetes:: No Hgb A1C: 6.4 - Weight Management Total Score:: 4 - Intervention Referral to dietitian:: No Referral to Diabetic Clinic:: No Will attend diet classes:: Yes - Education Gave educational materials for:: Signs & symptoms of hypoglycemia, Signs & symptoms of hyperglycemia, Relate diabetes to coronary artery disease, Healthy eating Nutrition - 30-Day Assessment - Program Goals Nutrition Program Goals: LDL <70. Total Cholesterol <200. HDL >45. Triglycerides <150. HgbA1C <7%. BMI <25 - Visit Date of Eval: 02/06/18 - 01/27/18-02/03/18 - Stages of Change Stages of Change:: Action - Lipids Has the patient seen the dietitian?: No - Diabetes Diabetes:: No Hgb A1C: 6.4 - Weight Management Weight:: 108.635 kg - Intervention Referral to dietitian:: No Referral to Diabetic Clinic:: No Will attend diet classes:: Yes - Education Attended class for:: Signs & symptoms of hypoglycemia, Signs & symptoms of hyperglycemia, Relate diabetes to coronary artery disease, Healthy eating Nutrition - 60-Day Assessment - Program Goals Nutrition Program Goals: LDL <70. Total Cholesterol <200. HDL >45. Triglycerides <150. HgbA1C <7%. BMI <25 - Diabetes Diabetes:: No Hgb A1C: 6.4 - Intervention Referral to dietitian:: No Referral to Diabetic Clinic:: No Will attend diet classes:: Yes - Education Attended class for:: Signs & symptoms of hypoglycemia, Signs & symptoms of hyperglycemia, Relate diabetes to coronary artery disease, Healthy eating Nutrition - 90-Day Assessment - Program Goals Nutrition Program Goals: LDL <70. Total Cholesterol <200. HDL >45. Triglycerides <150. HgbA1C <7%. BMI <25 - Diabetes Diabetes:: No Hgb A1C: 6.4 - Intervention Referral to dietitian:: No Referral to Diabetic Clinic:: No Will attend diet classes:: Yes - Education Attended class for:: Signs & symptoms of hypoglycemia, Signs & symptoms of hyperglycemia, Relate diabetes to coronary artery disease, Healthy eating Nutrition - Final Assessment - Program Goals Nutrition Program Goals: LDL <70. Total Cholesterol <200. HDL >45. Triglycerides <150. HgbA1C <7%. BMI <25 - Diabetes Diabetes:: No Hgb A1C: 6.4 - Weight Management Total Score:: 4 - Intervention Referral to dietitian:: No Referral to Diabetic Clinic:: No Will attend diet classes:: Yes Tobacco - Initial Assessment - Program Goals Tobacco Program Goals: Complete smoking cessation. Attend education classes. Improve Knowledge Test score - Stage of Change Stages of Change:: Contemplate - Learning Barriers Learning Barriers: Vision Total Score:: 7 - Family Support Do you have family support?: Yes - Tobacco Use Tobacco Use: Non-smoker Do you use smokeless tobacco?: No - Intervention Smoking Cessation Referral:: No Individual Education/Counseling:: No Education Schedule Given:: Yes - Education Gave educational material for:: Tobacco triggers, Coronary artery disease, Risk factors, Sexuality, Medical compliance, Cardiac A&P, Angina signs & symptoms Tobacco - 30-Day Assessment - Program Goals Tobacco Program Goals: Complete smoking cessation. Attend education classes. Improve Knowledge Test score - Stage of Change Stages of Change:: Action - Learning Barriers Learning Barriers: Participates in education - Family Support Do you have family support?: Yes - Tobacco Use Tobacco Use: Non-smoker Do you use smokeless tobacco?: No - Intervention Smoking Cessation Referral:: No Individual Education/Counseling:: No Education Schedule Given:: Yes - Education Attended class for:: Tobacco triggers, Coronary artery disease, Risk factors, Sexuality, Medical compliance, Cardiac A&P, Angina signs & symptoms Tobacco - 60-Day Assessment - Program Goals Tobacco Program Goals: Complete smoking cessation. Attend education classes. Improve Knowledge Test score - Family Support Do you have family support?: Yes - Tobacco Use Do you use smokeless tobacco?: No - Intervention Smoking Cessation Referral:: No Individual Education/Counseling:: No Education Schedule Given:: Yes - Education Attended class for:: Tobacco triggers, Coronary artery disease, Risk factors, Sexuality, Medical compliance, Cardiac A&P, Angina signs & symptoms Tobacco - 90-Day Assessment - Program Goals Tobacco Program Goals: Complete smoking cessation. Attend education classes. Improve Knowledge Test score - Family Support Do you have family support?: Yes - Tobacco Use Do you use smokeless tobacco?: No - Intervention Smoking Cessation Referral:: No Individual Education/Counseling:: No Education Schedule Given:: Yes - Education Attended class for:: Tobacco triggers, Coronary artery disease, Risk factors, Sexuality, Medical compliance, Cardiac A&P, Angina signs & symptoms Tobacco - Final Assessment - Program Goals Tobacco Program Goals: Complete smoking cessation. Attend education classes. Improve Knowledge Test score - Learning Barriers Cardiac Knowledge Test Score:: 7 - Family Support Do you have family support?: Yes - Tobacco Use Do you use smokeless tobacco?: No - Intervention Smoking Cessation Referral:: No Individual Education/Counseling:: No Education Schedule Given:: Yes Psychosocial - Initial Assess - Target Goals Target Goals: Assess presence or absence of depression. Using a valid screening tool, maximizes coping skills. Positive support system - Stages of Change Stages of Change:: Contemplate - Psychosocial Test Tool Used:: HANDS Depression Questionnaire Total Mood Screening Score:: 4 Self-Efficacy Score:: 8 - Intervention PS - Interventions: Yes Attend Stress Management Classes, Yes Uses Stress Management Skills, No Referral to Mental Health, No Referral to [facility] Case Management, No Referral to Physician - Education Gave educational materials for:: Coping techniques, Signs & symptoms of depression, Stress management, Relaxation techniques - Patient/Program Goal Preventative Medication(s):: Aspirin, CESAR inhibitor, Clopidogrel, Beta sary, Statin/lipid - Assistive Devices Assistive Devices:: None Fall Risk Assessed:: Yes Psychosocial - 30-Day Assess - Target Goals Target Goals: Assess presence or absence of depression. Using a valid screening tool, maximizes coping skills. Positive support system - Stages of Change Stages of Change:: Action - Psychosocial Test Tool Used:: HANDS Depression Questionnaire Total Mood Screening Score:: 4 Self-Efficacy Score:: 8 - Intervention PS - Interventions: Yes Attend Stress Management Classes, Yes Uses Stress Management Skills, No Referral to Mental Health, No Referral to [facility] Case Management, No Referral to Physician - Education Attended classes for:: Coping techniques, Signs & symptoms of depression, Stress management, Relaxation techniques - Patient/Program Goal Preventative Medication(s):: Aspirin, CESAR inhibitor, Clopidogrel, Beta sary, Statin/lipid - Assistive Devices Assistive Devices:: None Fall Risk Assessed:: Yes Psychosocial - 60-Day Assess - Target Goals Target Goals: Assess presence or absence of depression. Using a valid screening tool, maximizes coping skills. Positive support system - Psychosocial Test Tool Used:: HANDS Depression Questionnaire Total Mood Screening Score:: 4 Self-Efficacy Score:: 8 - Education Attended classes for:: Coping techniques, Signs & symptoms of depression, Stress management, Relaxation techniques - Patient/Program Goal Preventative Medication(s):: Aspirin, CESAR inhibitor, Clopidogrel, Beta sary, Statin/lipid - Assistive Devices Assistive Devices:: None Fall Risk Assessed:: Yes Psychosocial - 90-Day Assess - Target Goals Target Goals: Assess presence or absence of depression. Using a valid screening tool, maximizes coping skills. Positive support system - Psychosocial Test Tool Used:: HANDS Depression Questionnaire Total Mood Screening Score:: 4 Self-Efficacy Score:: 8 - Education Attended classes for:: Coping techniques, Signs & symptoms of depression, Stress management, Relaxation techniques - Patient/Program Goal Preventative Medication(s):: Aspirin, CESAR inhibitor, Clopidogrel, Beta sary, Statin/lipid - Assistive Devices Assistive Devices:: None Fall Risk Assessed:: Yes Psychosocial - Final Assessmen - Target Goals Target Goals: Assess presence or absence of depression. Using a valid screening tool, maximizes coping skills. Positive support system - Psychosocial Test Tool Used:: HANDS Depression Questionnaire Total Mood Screening Score:: 4 Self-Efficacy Score:: 8 - Patient/Program Goal Preventative Medication(s):: Aspirin, CESAR inhibitor, Clopidogrel, Beta sary, Statin/lipid - Assistive Devices Assistive Devices:: None Fall Risk Assessed:: Yes Patient Health Questionnaire 30-Day Re-eval Assessment 1. Little interest or pleasure in doing things: Not at all 2. Feeling down, depressed, or hopeless: Not at all 3. Trouble falling or staying asleep, or sleeping too much: Not at all 4. Feeling tired or having little energy: Several days 5. Poor appetite or overeating: Not at all 6. Feeling bad about yourself -- or that you are a failure or have let yourself or your family down: Not at all 7. Trouble concentrating on things, such as reading the newspaper or watching television: Not at all 8. Moving or speaking so slowly that other people could have noticed. Or the opposite - being so fidgety or restless that you have been moving around a lot more than usual: Not at all 9. Thoughts that you would be better off , or of hurting yourself in some way: Not at all Total Score: 1 Self-Efficacy 30-Day Re-eval Assessment We would like to know how confident you are in doing certain activities. Please select your confidence level for:: Select your confidence level for the following using the scale 1-10 where 1 is not at all confident and 10 is totally confident. Your score is the average of all 6 responses. Fatigue: How confident are you that you can keep the fatigue caused by your disease from interfering with the things you want to do? Select Number: 8 Physical Discomfort or Pain: How confident are you that you can keep the physical discomfort or pain of your disease from interfering with the things you want to do? Select Number: 8 Emotional Distress: How confident are you that you can keep the emotional distress caused by your disease from interfering with the things you want to do? Select Number: 8 Other Symptoms or Health Problems: How confident are you that you can keep other symptoms or health problems from interfering with the things you want to do? Select Number: 8 Different Tasks and Activities: How confident are you that you can do the different tasks and activities needed to manage your health condition so as to reduce your need to see a doctor? Select Number: 8 Medication: How confident are you that you can do things other than just taking medication to reduce how much your illness affects your everyday life? Select Number: 8 Total Score:: 8 Cardiac Rehabilitation Goals - Cardiac Rehab Goals Cardiac Rehabilitation Goals: 1. Maintain the individual as the primary focus of care. 2. To improve the patient's quality of life. 3. Identification of cardiac risk factors and provide cardiac risk factor management. 4. Enhance the psychosocial status of the patient. 5. Reconditioning enough to allow the patient to resume customary activities. 6. Control symptoms of cardiac disease - Scale Scale for measuring improvement of personal goals: Enter appropriate number in Comments. 2 = Unchanged. 3 = Slightly Better. 4 = Moderate Improvement. 5 = Met my Goal 30-Day Re-eval Assessment Personal Goals: 60-day Re-assessment: Improve energy level, Participate in home exercise program, Get back to work, or to resume activities faster, Improve knowledge of cardiac disease, Improve muscle strength and endurance
== END 2018-02-11 23:59 ==
LOC: CR 09:15
PROVIDERS: Family Provider Family Medicine; PCP Family Medicine; Visit Provider Internal Medicine Cardiovascular Disease
DX: I25.10 Atherosclerotic heart disease of native coronary artery without angina pectoris (principal); Z95.5 Presence of coronary angioplasty implant and graft; I21.3 ST elevation (STEMI) myocardial infarction of unspecified site; I25.5 Ischemic cardiomyopathy
CPT/HCPCS: 93798

== ENCOUNTER → 2018-03-06 06:41 | Outpatient (CLI) | payer OTHER, SELFPAY ==
[2018-03-06 07:25] LABS: AST(SGOT) 25 U/L (15-37); Alanine Aminotransfer ALT/SGPT 40 U/L (16-61); Alkaline Phosphatase 80 U/L (45-117); Bilirubin, Direct 0.29 mg/dL (0.00-0.30); Cholesterol 79 mg/dL (200); Globulin 3.4 g/dL (2.2-4.2); High Density Lipoprotein 35 mg/dL; Protein, Total 7.4 g/dL (6.4-8.2); Triglycerides 79 mg/dL; Very Low Density Lipoprotein 16 mg/dL (5-40)
== END ==
PROVIDERS: Family Provider Family Medicine; PCP Family Medicine; Visit Provider Internal Medicine Cardiovascular Disease
DX: I25.5 Ischemic cardiomyopathy (principal); I21.3 ST elevation (STEMI) myocardial infarction of unspecified site; Z95.5 Presence of coronary angioplasty implant and graft; I25.10 Atherosclerotic heart disease of native coronary artery without angina pectoris
CPT/HCPCS: 36415; 80061; 80076

== ENCOUNTER 2018-03-13 09:15 | Outpatient (RCR) | payer OTHER, SELFPAY ==
[2018-02-12 01:16] VITALS: BP 100/72; BP 140/82
[2018-03-06 08:35] VITALS: BP 102/70; BP 130/76
--- NOTE | 2018-03-06 08:36 | CR.ITP_ITS ---
General Information - General Information Admitting Diagnosis: STEMI S/P coronary artery stenting - Education/Goals Barriers to Learning: None Individual Counselin-Day Assessment: High Blood Pressure, Overweight/ Obesity, Diabetes Cardiac Rehabilitation Goals: 1. Maintain the individual as the primary focus of care. 2. To improve the patient's quality of life. 3. Identification of cardiac risk factors and provide cardiac risk factor management. 4. Enhance the psychosocial status of the patient. 5. Reconditioning enough to allow the patient to resume customary activities. 6. Control symptoms of cardiac disease Scale for measuring improvement of personal goals: Enter appropriate number in Comments. 2 = Unchanged. 3 = Slightly Better. 4 = Moderate Improvement. 5 = Met my Goal Personal Goals: 60-day Re-assessment: Participate in home exercise program, Get back to work, or to resume activities faster - goal achieved, Improve muscle strength and endurance Exercise - 60-Day Assessment - Visit Date of Eval: 03/06/18 - Stages of Change Stages of Change:: Action - Exercise Prescription Mode:: Treadmill, Airdyne, NuStep Frequency (x/week): 3 Duration:: 30 METs: 5.5 Target Heart Rate:: 126-134 - Hypertension Resting Blood Pressure:: 102/70 Peak Exercise Blood Pressure:: 130/76 Medication Changes:: No - Intervention Home Exercise/Activity Goal:: Sitting Time <3 hrs/day - Education Goals:: Warm-up, RPE ANUM Scale, S/S, Safe Exercise, Self-Monitoring - Exercise Program Goals Exercise Program Goals: Aerobic Activity >30 min, B/P <140/90 Nutrition - 60-Day Assessment - Program Goals Nutrition Program Goals: LDL <70. Total Cholesterol <200. HDL >45. Triglycerides <150. HgbA1C <7%. BMI <25 - Visit Date of Eval: 03/06/18 - Stages of Change Stages of Change:: Action - Lipids Has the patient seen the dietitian?: No - Weight Management Weight:: 227 kg - Intervention Referral to dietitian:: No Referral to Diabetic Clinic:: No Will attend diet classes:: Yes - Education Attended class for:: Signs & symptoms of hypoglycemia, Signs & symptoms of hyperglycemia, Relate diabetes to coronary artery disease, Healthy eating Tobacco - Initial Assessment - Program Goals Tobacco Program Goals: Complete smoking cessation. Attend education classes. Improve Knowledge Test score - Learning Barriers Learning Barriers: Vision Tobacco - 60-Day Assessment - Program Goals Tobacco Program Goals: Complete smoking cessation. Attend education classes. Improve Knowledge Test score - Stage of Change Stages of Change:: Action - Learning Barriers Learning Barriers: Participates in education - Family Support Do you have family support?: Yes - Tobacco Use Tobacco Use: Non-smoker Do you use smokeless tobacco?: No - Intervention Smoking Cessation Referral:: No Individual Education/Counseling:: No Education Schedule Given:: Yes - Education Attended class for:: Tobacco triggers, Coronary artery disease, Risk factors, Sexuality, Medical compliance, Cardiac A&P, Angina signs & symptoms Psychosocial - Initial Assess - Target Goals Target Goals: Assess presence or absence of depression. Using a valid screening tool, maximizes coping skills. Positive support system - Psychosocial Test Tool Used:: HANDS Depression Questionnaire - Assistive Devices Fall Risk Assessed:: Yes Psychosocial - 60-Day Assess - Target Goals Target Goals: Assess presence or absence of depression. Using a valid screening tool, maximizes coping skills. Positive support system - Stages of Change Stages of Change:: Action - Psychosocial Test Tool Used:: HANDS Depression Questionnaire - Intervention PS - Interventions: Yes Attend Stress Management Classes, Yes Uses Stress Management Skills, No Referral to Mental Health, No Referral to [facility] Case Management, No Referral to Physician - Education Attended classes for:: Coping techniques, Signs & symptoms of depression, Stress management, Relaxation techniques - Assistive Devices Assistive Devices:: None Fall Risk Assessed:: Yes Patient Health Questionnaire 30-Day Re-eval Assessment 1. Little interest or pleasure in doing things: Not at all 2. Feeling down, depressed, or hopeless: Not at all 3. Trouble falling or staying asleep, or sleeping too much: Not at all 4. Feeling tired or having little energy: Not at all 5. Poor appetite or overeating: Not at all 6. Feeling bad about yourself -- or that you are a failure or have let yourself or your family down: Not at all 7. Trouble concentrating on things, such as reading the newspaper or watching television: Not at all 8. Moving or speaking so slowly that other people could have noticed. Or the opposite - being so fidgety or restless that you have been moving around a lot more than usual: Not at all 9. Thoughts that you would be better off , or of hurting yourself in some way: Not at all How difficult have these problems made it for you to do your work, take care of things at home, or get along with other people?: Not difficult at all Total Score: 0 Self-Efficacy 30-Day Re-eval Assessment We would like to know how confident you are in doing certain activities. Please select your confidence level for:: Select your confidence level for the following using the scale 1-10 where 1 is not at all confident and 10 is totally confident. Your score is the average of all 6 responses. Fatigue: How confident are you that you can keep the fatigue caused by your disease from interfering with the things you want to do? Select Number: 10 Physical Discomfort or Pain: How confident are you that you can keep the physical discomfort or pain of your disease from interfering with the things you want to do? Select Number: 10 Emotional Distress: How confident are you that you can keep the emotional distress caused by your disease from interfering with the things you want to do? Select Number: 10 Other Symptoms or Health Problems: How confident are you that you can keep other symptoms or health problems from interfering with the things you want to do? Select Number: 10 Different Tasks and Activities: How confident are you that you can do the different tasks and activities needed to manage your health condition so as to reduce your need to see a doctor? Select Number: 10 Medication: How confident are you that you can do things other than just taking medication to reduce how much your illness affects your everyday life? Select Number: 10 Total Score:: 10
== END 2018-03-13 23:59 ==
LOC: CR 09:15
PROVIDERS: Family Provider Family Medicine; PCP Family Medicine; Visit Provider Internal Medicine Cardiovascular Disease
DX: I25.10 Atherosclerotic heart disease of native coronary artery without angina pectoris (principal); Z95.5 Presence of coronary angioplasty implant and graft; I21.3 ST elevation (STEMI) myocardial infarction of unspecified site; I25.5 Ischemic cardiomyopathy
CPT/HCPCS: 93798

== ENCOUNTER 2018-04-12 09:15 | Outpatient (RCR) | payer OTHER, SELFPAY ==
[2018-03-14 00:57] VITALS: BP 102/70; BP 130/76
--- NOTE | 2018-04-05 14:06 | PCM.CR.ITP ---
General Information - General Information Admitting Diagnosis: STEMI w/ coronary artery stent placement - Education/Goals Barriers to Learning: None Individual Counseling: Discharge Assessment: High Blood Pressure, Overweight/Obesity, Diabetes Cardiac Rehabilitation Goals: 1. Maintain the individual as the primary focus of care. 2. To improve the patient's quality of life. 3. Identification of cardiac risk factors and provide cardiac risk factor management. 4. Enhance the psychosocial status of the patient. 5. Reconditioning enough to allow the patient to resume customary activities. 6. Control symptoms of cardiac disease Scale for measuring improvement of personal goals: Enter appropriate number in Comments. 2 = Unchanged. 3 = Slightly Better. 4 = Moderate Improvement. 5 = Met my Goal Personal Goals: Discharge Reassessment: Participate in home exercise program, Improve muscle strength and endurance Exercise - 90-Day Assessment - Visit Date of Eval: 04/05/18 Session #:: 29 - Stages of Change Stages of Change:: Action - Exercise Prescription Mode:: Treadmill, Airdyne, NuStep Frequency (x/week): 3 - 216% MET increase Duration:: 30 METs: 7.9 Target Heart Rate:: 126-134 Max HR 133 - Hypertension Resting Blood Pressure:: 112/70 Peak Exercise Blood Pressure:: 154/88 Medication Changes:: No - Intervention Home Exercise/Activity Goal:: Sitting Time <3 hrs/day - Education Goals:: Warm-up, RPE ANUM Scale, S/S, Safe Exercise, Self-Monitoring - Exercise Program Goals Exercise Program Goals: Aerobic Activity >30 min, B/P <130/80 Nutrition - 90-Day Assessment - Program Goals Nutrition Program Goals: LDL <70. Total Cholesterol <200. HDL >45. Triglycerides <150. HgbA1C <7%. BMI <25 - Visit Date of Eval: 04/05/18 - Lipids Has the patient seen the dietitian?: No - Diabetes Diabetes:: Yes - Weight Management Weight:: 98.883 kg - Intervention Referral to dietitian:: No Referral to Diabetic Clinic:: No Will attend diet classes:: Yes - Education Attended class for:: Signs & symptoms of hypoglycemia, Signs & symptoms of hyperglycemia, Relate diabetes to coronary artery disease, Healthy eating Tobacco - Initial Assessment - Program Goals Tobacco Program Goals: Complete smoking cessation. Attend education classes. Improve Knowledge Test score - Learning Barriers Learning Barriers: Vision Tobacco - 90-Day Assessment - Program Goals Tobacco Program Goals: Complete smoking cessation. Attend education classes. Improve Knowledge Test score - Stage of Change Stages of Change:: Action - Learning Barriers Learning Barriers: Participates in education - Family Support Do you have family support?: Yes - Tobacco Use Tobacco Use: Non-smoker Do you use smokeless tobacco?: No - Intervention Smoking Cessation Referral:: No Individual Education/Counseling:: No Education Schedule Given:: Yes - Education Attended class for:: Tobacco triggers, Coronary artery disease, Risk factors, Sexuality, Medical compliance, Cardiac A&P, Angina signs & symptoms Psychosocial - 90-Day Assess - Target Goals Target Goals: Assess presence or absence of depression. Using a valid screening tool, maximizes coping skills. Positive support system - Stages of Change Stages of Change:: Action - Psychosocial Test Tool Used:: HANDS Depression Questionnaire - Intervention PS - Interventions: Yes Attend Stress Management Classes, Yes Uses Stress Management Skills, No Referral to Mental Health, No Referral to [facility] Case Management, No Referral to Physician - Education Attended classes for:: Coping techniques, Signs & symptoms of depression, Stress management, Relaxation techniques - Assistive Devices Assistive Devices:: None Fall Risk Assessed:: Yes Patient Health Questionnaire 90-Day Re-eval Assessment 1. Little interest or pleasure in doing things: Not at all 2. Feeling down, depressed, or hopeless: Not at all 3. Trouble falling or staying asleep, or sleeping too much: Not at all 4. Feeling tired or having little energy: Not at all 5. Poor appetite or overeating: Not at all 6. Feeling bad about yourself -- or that you are a failure or have let yourself or your family down: Not at all 7. Trouble concentrating on things, such as reading the newspaper or watching television: Not at all 8. Moving or speaking so slowly that other people could have noticed. Or the opposite - being so fidgety or restless that you have been moving around a lot more than usual: Not at all 9. Thoughts that you would be better off , or of hurting yourself in some way: Not at all Total Score: 0 Self-Efficacy 90-Day Re-eval Assessment We would like to know how confident you are in doing certain activities. Please select your confidence level for:: Select your confidence level for the following using the scale 1-10 where 1 is not at all confident and 10 is totally confident. Your score is the average of all 6 responses. Fatigue: How confident are you that you can keep the fatigue caused by your disease from interfering with the things you want to do? Select Number: 10 Physical Discomfort or Pain: How confident are you that you can keep the physical discomfort or pain of your disease from interfering with the things you want to do? Select Number: 10 Emotional Distress: How confident are you that you can keep the emotional distress caused by your disease from interfering with the things you want to do? Select Number: 10 Other Symptoms or Health Problems: How confident are you that you can keep other symptoms or health problems from interfering with the things you want to do? Select Number: 10 Different Tasks and Activities: How confident are you that you can do the different tasks and activities needed to manage your health condition so as to reduce your need to see a doctor? Select Number: 10 Medication: How confident are you that you can do things other than just taking medication to reduce how much your illness affects your everyday life? Select Number: 10 Total Score:: 10
[2018-04-05 14:12] VITALS: BP 112/70; BP 154/88
== END 2018-04-13 23:59 ==
LOC: CR 09:15
PROVIDERS: Family Provider Family Medicine; PCP Family Medicine; Visit Provider Internal Medicine Cardiovascular Disease
DX: I25.10 Atherosclerotic heart disease of native coronary artery without angina pectoris (principal); Z95.5 Presence of coronary angioplasty implant and graft; I21.3 ST elevation (STEMI) myocardial infarction of unspecified site; I25.5 Ischemic cardiomyopathy
CPT/HCPCS: 93798

== ENCOUNTER 2018-04-14 08:18 | Outpatient (RCR) | payer OTHER, SELFPAY ==
[2018-04-14 00:49] VITALS: BP 112/70; BP 154/88
== END 2018-05-13 23:59 ==
LOC: CR 08:18
PROVIDERS: Family Provider Family Medicine; PCP Family Medicine; Visit Provider Internal Medicine Cardiovascular Disease
DX: I25.10 Atherosclerotic heart disease of native coronary artery without angina pectoris (principal); I25.5 Ischemic cardiomyopathy; I25.2 Old myocardial infarction; Z95.5 Presence of coronary angioplasty implant and graft
CPT/HCPCS: 93798

== ENCOUNTER → 2018-04-26 13:39 | Outpatient (CLI) | payer OTHER, SELFPAY ==
--- NOTE | 2018-04-26 13:41 | ECHOD_ITS ---
Reason For Study: CAD/ ASHD Procedure This was a 2D Doppler, Color Flow transthoracic echocardiogram. Exam performed in department. Left Ventricle Mildly dilated left ventricle. The estimated ejection fraction is 45 %. Stage 1 diastolic dysfunction. There are regional wall motion abnormalities as specified. Right Ventricle Normal size and thickness. Normal systolic function. Atria Normal left atrium. Normal right atrium. Probable chiari network. Normal atrial septum. Mitral Valve The mitral valve is structurally normal. No prolapse or stenosis seen. Tricuspid Valve Normal tricuspid valve. Mild (1+) tricuspid valve insufficiency. Right ventricular systolic pressure estimated to be 24 mmHg. Aortic Valve Normal aortic valve. Trisinus/trileaflet aortic valve. Pulmonic Valve Normal pulmonic valve. Great Vessels Mildly dilated aortic root. Normal arch. Normal inferior vena cava. Inferior vena cava collapse with sniff. Pericardium/Pleural No pericardial effusion. MMode/2D Measurements & Calculations LVIDd: 5.5 cm IVSd: 1.2 cm Ao root diam: 4.7 cm LVIDs: 3.8 cm LVPWd: 1.2 cm LA dimension: 3.4 cm FS: 30.6 % LAV(MOD-sp4): 34.1 ml LA A4 area: 15.4 cm2 RA A4 area: 16.6 cm2 Time Measurements MV dec time: 0.30 sec Doppler Measurements & Calculations MV E max angélica: 41.1 cm/sec MV V2 max: 82.0 cm/sec MV P1/2t max angélica: 46.9 cm/sec MV A max angélica: 87.6 cm/sec MV max P.7 mmHg MV P1/2t: 98.6 msec MV E/A: 0.47 MV V2 mean: 40.3 cm/sec MV dec slope: 139.3 cm/sec2 MV mean P.78 mmHg MVA(P1/2t): 2.2 cm2 MV V2 VTI: 21.4 cm Ao V2 max: 80.2 cm/sec LV V1 max: 80.8 cm/sec PA V2 max: 125.2 cm/sec Ao max P.6 mmHg LV V1 max P.6 mmHg Ao V2 mean: 49.4 cm/sec LV V1 mean P.2 mmHg Ao mean P.1 mmHg LV V1 mean: 52.1 cm/sec Ao V2 VTI: 13.2 cm LV V1 VTI: 14.8 cm TR max angélica: 219.9 cm/sec TR max P.3 mmHg Interpretation Summary Mildly dilated left ventricle. The estimated ejection fraction is 45 %. There are regional wall motion abnormalities as specified. Stage 1 diastolic dysfunction. Mild (1+) tricuspid valve insufficiency. Right ventricular systolic pressure estimated to be 24 mmHg. Mildly dilated aortic root. Compared to echo report dated 01/16/2018, no appreciable changes noted. Ordering Physician: Vern Kaur Referring Physician: Vern Kaur Performed By: Guy Restrepo RCS
[2018-04-26 16:26] LABS: Cholesterol 79 mg/dL (200); High Density Lipoprotein 35 mg/dL; Triglycerides 67 mg/dL; Very Low Density Lipoprotein 13 mg/dL (5-40)
[2018-04-26 16:28] LABS: Hemoglobin A1c 5.7 % (4.2-6.3)
== END ==
PROVIDERS: Family Provider Family Medicine; PCP Family Medicine; Visit Provider Internal Medicine Cardiovascular Disease
DX: E11.9 Type 2 diabetes mellitus without complications (principal); E78.00 Pure hypercholesterolemia, unspecified; I25.2 Old myocardial infarction; I25.10 Atherosclerotic heart disease of native coronary artery without angina pectoris; I21.09 ST elevation (STEMI) myocardial infarction involving other coronary artery of anterior wall; Z95.5 Presence of coronary angioplasty implant and graft
CPT/HCPCS: 36415; 80061; 83036; 93306

== ENCOUNTER → 2018-09-02 07:03 | Outpatient (CLI) | payer OTHER, SELFPAY ==
[2018-09-02 09:04] LABS: AST(SGOT) 25 U/L (15-37); Alanine Aminotransfer ALT/SGPT 37 U/L (16-61); Albumin, Serum 3.9 g/dL (3.2-5.0); Alkaline Phosphatase 69 U/L (45-117); Bilirubin, Direct 0.25 mg/dL (0.00-0.30); Cholesterol 85 mg/dL (200); Globulin 3.4 g/dL (2.2-4.2); High Density Lipoprotein 34 mg/dL; Protein, Total 7.3 g/dL (6.4-8.2); Triglycerides 79 mg/dL; Very Low Density Lipoprotein 16 mg/dL (5-40)
== END ==
PROVIDERS: Family Provider Family Medicine; PCP Family Medicine; Referring Provider Nurse Practitioner Family; Visit Provider Nurse Practitioner Family
DX: I25.10 Atherosclerotic heart disease of native coronary artery without angina pectoris (principal); I25.5 Ischemic cardiomyopathy; Z95.5 Presence of coronary angioplasty implant and graft
CPT/HCPCS: 36415; 80061; 80076

== ENCOUNTER → 2019-05-05 | Outpatient (CLI) | payer OTHER, SELFPAY ==
[2019-05-01 15:55] VITALS: BMI 32.4
[2019-05-05 08:22] LABS: AST(SGOT) 27 U/L (15-37); Alanine Aminotransfer ALT/SGPT 44 U/L (16-61); Alkaline Phosphatase 70 U/L (45-117); Cholesterol 94 mg/dL (200); Globulin 3.3 g/dL (2.2-4.2); High Density Lipoprotein 39 mg/dL; Protein, Total 7.3 g/dL (6.4-8.2); Triglycerides 76 mg/dL; Very Low Density Lipoprotein 15 mg/dL (5-40)
== END | disposition home or self-care (01) ==
LOC: LAB 06:58
PROVIDERS: Family Provider Family Medicine; PCP Family Medicine; Referring Provider Internal Medicine Cardiovascular Disease; Visit Provider Internal Medicine Cardiovascular Disease
DX: I25.10 Atherosclerotic heart disease of native coronary artery without angina pectoris (principal); I25.5 Ischemic cardiomyopathy
CPT/HCPCS: 36415; 80061; 80076

== ENCOUNTER → 2019-12-08 06:56 | Outpatient (CLI) | payer OTHER, SELFPAY ==
[2019-11-26 16:10] VITALS: BMI 33.5
[2019-12-08 08:16] LABS: Hematocrit 45.6 % (40-54); Hemoglobin 15.1 g/dL (13.0-16.5); Mean Corp Hgb Conc 33.1 g/dL (32-36); Mean Corpuscular Hgb 30.1 pg (27.0-32.0); Mean Platelet Vol. 10.4 fl (6.2-12.0); Platelet Count 152 K/mm3 (150-450); RBC Distribution Width CV 12.2 % (11.6-14.6); RBC Distribution Width SD 40.4 fl (35.1-43.9); Red Blood Count 5.01 M/mm3 (4.6-6.2); White Blood Count 4.6 K/mm3 (4.4-11.0)
[2019-12-08 08:31] LABS: Microalbumin,Random Urine 8.7 mg/L (NO RANGE EST.); Microalbumin:Creatinine Ratio 8.4 mg/g CRE (<30 mg/g CRE)
[2019-12-08 08:47] LABS: ALB/GLOB Ratio 1.2 RATIO (0.9-2.4); AST(SGOT) 30 U/L (15-37); Alanine Aminotransfer ALT/SGPT 41 U/L (16-61); Alkaline Phosphatase 61 U/L (45-117); Anion Gap 6 (5-15); BUN 21 mg/dL (7-18); BUN/Creat Ratio 20.6 RATIO (10-20); Calcium,Total 8.6 mg/dL (8.5-10.1); Chloride 108 mmol/L (98-107); Cholesterol 93 mg/dL (200); Creatinine, Serum 1.02 mg/dL (0.70-1.30); EST Glomerular Filtration Rate 78 mL/min (>60); Est Glom Filt Rate - Afr Amer 95 mL/min (>60); Globulin 3.4 g/dL (2.2-4.2); Glucose 98 mg/dL (74-106); High Density Lipoprotein 38 mg/dL; PSA,Total - Annual Screen 2.16 ng/mL (0.00-4.00); Potassium 3.8 mmol/L (3.5-5.1); Protein, Total 7.4 g/dL (6.4-8.2); Sodium Level 138 mmol/L (136-145); Triglycerides 71 mg/dL; Very Low Density Lipoprotein 14 mg/dL (5-40)
== END ==
PROVIDERS: PCP Family Medicine; Referring Provider Nurse Practitioner Family; Visit Provider Nurse Practitioner Family
DX: I10 Essential (primary) hypertension (principal); E78.5 Hyperlipidemia, unspecified; Z12.5 Encounter for screening for malignant neoplasm of prostate
CPT/HCPCS: 36415; 80053; 80061; 82043; 82570; 84153; 85027; G0103

== ENCOUNTER → 2020-11-22 06:58 | Outpatient (CLI) | payer OTHER, SELFPAY ==
[2020-06-30 11:27] VITALS: BMI 33.1
[2020-11-22 07:32] LABS: Hematocrit 46.1 % (40-54); Hemoglobin 15.3 g/dL (13.0-16.5); Mean Corp Hgb Conc 33.2 g/dL (32-36); Mean Corpuscular Hgb 30.3 pg (27.0-32.0); Mean Corpuscular Volume 91.3 fL (80-94); Mean Platelet Vol. 10.6 fl (6.2-12.0); Platelet Count 178 K/mm3 (150-450); RBC Distribution Width CV 12.4 % (11.6-14.6); RBC Distribution Width SD 41.1 fl (35.1-43.9); Red Blood Count 5.05 M/mm3 (4.6-6.2)
[2020-11-22 07:59] LABS: Microalbumin,Random Urine 5.6 mg/L (NO RANGE EST.)
[2020-11-22 08:00] LABS: ALB/GLOB Ratio 1.1 RATIO (0.9-2.4); AST(SGOT) 28 U/L (15-37); Alanine Aminotransfer ALT/SGPT 41 U/L (16-61); Albumin, Serum 3.8 g/dL (3.2-5.0); Alkaline Phosphatase 68 U/L (45-117); Anion Gap 6 (5-15); BUN 21 mg/dL (7-18); BUN/Creat Ratio 21.4 RATIO (10-20); Calcium,Total 8.4 mg/dL (8.5-10.1); Chloride 106 mmol/L (98-107); Cholesterol 105 mg/dL (200); Creatinine, Serum 0.98 mg/dL (0.70-1.30); EST Glomerular Filtration Rate 82 mL/min (>60); Est Glom Filt Rate - Afr Amer 99 mL/min (>60); Globulin 3.4 g/dL (2.2-4.2); Glucose 99 mg/dL (74-106); High Density Lipoprotein 35 mg/dL; PSA,Total - Annual Screen 2.57 ng/mL (0.00-4.00); Potassium 3.9 mmol/L (3.5-5.1); Protein, Total 7.2 g/dL (6.4-8.2); Sodium Level 138 mmol/L (136-145); Triglycerides 73 mg/dL; Very Low Density Lipoprotein 15 mg/dL (5-40)
[2020-11-22 09:27] LABS: Hemoglobin A1c 5.8 % (3.8-5.6)
== END ==
PROVIDERS: PCP Nurse Practitioner Family; Referring Provider Nurse Practitioner Family; Visit Provider Nurse Practitioner Family
DX: I10 Essential (primary) hypertension (principal); E78.5 Hyperlipidemia, unspecified; R73.01 Impaired fasting glucose; Z12.5 Encounter for screening for malignant neoplasm of prostate
CPT/HCPCS: 36415; 80053; 80061; 82043; 83036; 84153; 85027; G0103

== ENCOUNTER → 2021-02-12 13:35 | Outpatient (CLI) | payer OTHER, SELFPAY ==
--- NOTE | 2021-02-12 13:37 | ECHOD_ITS ---
Version 2 Reason For Study: CAD Procedure This was a 2D Doppler, Color Flow transthoracic echocardiogram. Exam performed in department. Left Ventricle Normal LV size. The estimated ejection fraction is 45 %. Stage 1 diastolic dysfunction. Mid- Anterior : Mildly hypokinetic. Mid-anteroseptal : Hypokinetic. The rest of the wall segments are normal. Right Ventricle Normal RV size. Normal systolic function. Atria Normal left atrium. Normal right atrium. Mitral Valve Bileaflet diffuse mitral valve thickening. Mild (1+) eccentric mitral valve insufficiency. Tricuspid Valve Normal tricuspid valve. Mild tricuspid valve insufficiency. Pulmonic Valve Normal pulmonic valve. Great Vessels Normal aortic root. Pericardium/Pleural No pericardial effusion. MMode/2D Measurements & Calculations LVIDd: 5.4 cm IVSd: 1.1 cm Ao root diam: 3.8 cm LVIDs: 4.0 cm LVPWd: 1.1 cm RVDd: 3.6 cm FS: 25.8 % LAV(MOD-bp): 48.9 ml EDV(MOD-sp4): 159.4 ml EDV(MOD-sp2): 151.3 ml LAV(MOD-bp) Indexed: 21.8 ml/m2 ESV(MOD-sp4): 99.2 ml EF(MOD-sp2): 43.9 % LAV(MOD-sp2): 44.8 ml EF(MOD-sp4): 37.8 % LAV(MOD-sp4): 48.1 ml SV(MOD-sp4): 60.2 ml SV(MOD-sp2): 66.5 ml LA A4 area: 18.7 cm2 LA dimension(2D): 3.1 cm RA A4 area: 17.6 cm2 Doppler Measurements & Calculations MV E max naldo: 46.7 cm/sec Lat Peak E' Naldo: 5.6 cm/sec Med Peak E' Naldo: 3.8 cm/sec MV A max naldo: 97.1 cm/sec E/E' lat: 8.4 E/E' med: 12.2 MV E/A: 0.48 Ao V2 max: 107.7 cm/sec LV V1 max: 82.7 cm/sec PA V2 max: 98.0 cm/sec Ao max P.6 mmHg LV V1 max P.7 mmHg TR max naldo: 222.4 cm/sec TR max P.8 mmHg ECHO/Echo Complete Interpretation Summary Normal LV size. The estimated ejection fraction is 45 %. Stage 1 diastolic dysfunction. Bileaflet diffuse mitral valve thickening. Mild (1+) eccentric mitral valve insufficiency. Mid-Anterior : Mildly hypokinetic Mid-anteroseptal : Hypokinetic The rest of the wall segments are normal. The global longitudinal strain is moderately abnormal. Compared to previous study, the left ventricular systolic function is the same. . The global longitudinal strain = -13.7% (abnormal). The global longitudinal strain is mode rately abnormal. Ordering Physician: Claudio Cotton Referring Physician: Joce Reid Performed By: Radha Murillo RDCS
== END ==
PROVIDERS: PCP Nurse Practitioner Family; Referring Provider Internal Medicine Cardiovascular Disease; Visit Provider Internal Medicine Cardiovascular Disease
DX: I25.10 Atherosclerotic heart disease of native coronary artery without angina pectoris (principal); I25.5 Ischemic cardiomyopathy
CPT/HCPCS: 93306

== ENCOUNTER → 2021-06-16 05:52 | Outpatient (CLI) | payer OTHER, SELFPAY ==
[2021-03-29 08:14] VITALS: BMI 33.1
[2021-06-16 07:16] LABS: Hematocrit 46.4 % (40-54); Hemoglobin 15.2 g/dL (13.0-16.5); Mean Corp Hgb Conc 32.8 g/dL (32-36); Mean Corpuscular Hgb 30.6 pg (27.0-32.0); Mean Corpuscular Volume 93.5 fL (80-94); Mean Platelet Vol. 10.7 fl (6.2-12.0); Platelet Count 182 K/mm3 (150-450); RBC Distribution Width CV 12.5 % (11.6-14.6); RBC Distribution Width SD 42.9 fl (35.1-43.9); Red Blood Count 4.96 M/mm3 (4.6-6.2); White Blood Count 5.3 K/mm3 (4.4-11.0)
[2021-06-16 07:58] LABS: ALB/GLOB Ratio 1.1 RATIO (0.9-2.4); AST(SGOT) 31 U/L (15-37); Alanine Aminotransfer ALT/SGPT 39 U/L (16-61); Albumin, Serum 3.9 g/dL (3.2-5.0); Alkaline Phosphatase 63 U/L (45-117); Anion Gap 4 (5-15); BUN 21 mg/dL (7-18); BUN/Creat Ratio 21.7 RATIO (10-20); Calcium,Total 8.4 mg/dL (8.5-10.1); Chloride 104 mmol/L (98-107); Cholesterol 103 mg/dL (200); Creatinine, Serum 0.97 mg/dL (0.70-1.30); EST Glomerular Filtration Rate 83 mL/min (>60); Est Glom Filt Rate - Afr Amer 100 mL/min (>60); Globulin 3.4 g/dL (2.2-4.2); Glucose 92 mg/dL (74-106); High Density Lipoprotein 35 mg/dL; Potassium 3.8 mmol/L (3.5-5.1); Protein, Total 7.3 g/dL (6.4-8.2); Sodium Level 138 mmol/L (136-145); Triglycerides 101 mg/dL; Very Low Density Lipoprotein 20 mg/dL (5-40)
== END ==
PROVIDERS: PCP Nurse Practitioner Family; Referring Provider Nurse Practitioner Family; Visit Provider Nurse Practitioner Family
DX: I10 Essential (primary) hypertension (principal); E78.5 Hyperlipidemia, unspecified
CPT/HCPCS: 36415; 80053; 80061; 85027

== ENCOUNTER 2022-01-02 07:01 | Outpatient (CLI) | payer MEDICARE, OTHER, SELFPAY ==
[2022-01-02 08:17] LABS: ALB/GLOB Ratio 1.1 RATIO (0.9-2.4); AST(SGOT) 30 U/L (15-37); Alanine Aminotransfer ALT/SGPT 50 U/L (16-61); Albumin, Serum 3.9 g/dL (3.2-5.0); Alkaline Phosphatase 74 U/L (45-117); Anion Gap 7 (5-15); BUN 20 mg/dL (7-18); BUN/Creat Ratio 21.7 RATIO (10-20); Calcium,Total 8.5 mg/dL (8.5-10.1); Chloride 106 mmol/L (98-107); Cholesterol 143 mg/dL (200); Creatinine, Serum 0.92 mg/dL (0.70-1.30); EST Glomerular Filtration Rate 87 mL/min (>60); Est Glom Filt Rate - Afr Amer 105 mL/min (>60); Globulin 3.6 g/dL (2.2-4.2); Glucose 102 mg/dL (74-106); High Density Lipoprotein 34 mg/dL; PSA,Total - Annual Screen 3.45 ng/mL (0.00-4.00); Potassium 3.8 mmol/L (3.5-5.1); Protein, Total 7.5 g/dL (6.4-8.2); Sodium Level 136 mmol/L (136-145); Triglycerides 74 mg/dL; Very Low Density Lipoprotein 15 mg/dL (5-40)
[2022-01-04 09:39] LABS: Vitamin D,25 Hydroxy 32.2 ng/mL
== END 2022-01-02 23:59 | disposition home or self-care (01) ==
LOC: LAB 07:03
PROVIDERS: PCP Nurse Practitioner Family; Referring Provider Nurse Practitioner Family; Visit Provider Nurse Practitioner Family
DX: I10 Essential (primary) hypertension (principal); R73.01 Impaired fasting glucose; E78.5 Hyperlipidemia, unspecified; I25.5 Ischemic cardiomyopathy; I51.9 Heart disease, unspecified; E55.9 Vitamin D deficiency, unspecified; Z12.5 Encounter for screening for malignant neoplasm of prostate
CPT/HCPCS: 36415; 80053; 80061; 82306; 84153; G0103

== ENCOUNTER → 2022-03-25 | Outpatient (CLI) | payer MEDICARE, OTHER, SELFPAY ==
--- NOTE | 2022-03-25 15:07 | RAD_ITS ---
STUDY: X-RAY - RIGHT FOOT CLINICAL: Male, 66 years old. CONTUSION RIGHT 4TH TOE -- ATTN 4TH TOE TECHNIQUE: view(s) of the foot. COMPARISON: None. FINDINGS: Normal talus, calcaneus, and tarsal bones. Normal visualized subtalar, talonavicular, calcaneocuboid, tarsal and tarsometatarsal articulations. Normal metatarsi. Normal metatarsophalangeal joint of the great toe. Normal tibial and fibular sesamoid bones. Normal interphalangeal joint of the great toe. Normal phalanges of the great toe. Normal second through fifth metatarsophalangeal joints. Normal interphalangeal joints and phalanges of the lesser toes. There is periosteal reaction involving the proximal phalanx of the fourth toe. The soft tissue structures are unremarkable. RAD/Foot min 3 Views IMPRESSION: There is periosteal reaction involving the proximal phalanx of the fourth toe. Electronically Signed: Gabriel Crook MD at 2:53 EDT ,
== END | disposition home or self-care (01) ==
LOC: MTRAD 15:06
PROVIDERS: PCP Nurse Practitioner Family
DX: S90.121A Contusion of right lesser toe(s) without damage to nail, initial encounter (principal)
CPT/HCPCS: 73630

== ENCOUNTER → 2022-05-03 | Outpatient (CLI) | payer MEDICARE, OTHER, SELFPAY ==
--- NOTE | 2022-05-03 16:06 | RAD_ITS ---
STUDY: XR Foot Min 3 Views CLINICAL: Male, 66 years old. HEALING FRACTURE TECHNIQUE: XR Foot Min 3 ViewsRIGHT COMPARISON: Mar 25 2022 3:12pm . FINDINGS: Normal talus, calcaneus, and tarsal bones. Normal visualized subtalar, talonavicular, calcaneocuboid, tarsal and tarsometatarsal articulations. Normal metatarsi. Normal metatarsophalangeal joint of the great toe. Normal tibial and fibular sesamoid bones. Normal interphalangeal joint of the great toe. Normal phalanges of the great toe. Normal second through fifth metatarsophalangeal joints. There is periosteal reaction involving the proximal phalanx of the fourth toe. The soft tissue structures are unremarkable. RAD/Foot min 3 Views IMPRESSION: Healing fracture involving the base and shaft of the fourth proximal phalanx. Electronically Signed: Alexandre Moreno MD at 16:28 EDT ,
== END | disposition home or self-care (01) ==
LOC: MTRAD 16:04
PROVIDERS: PCP Nurse Practitioner Family
DX: S92.911D Unspecified fracture of right toe(s), subsequent encounter for fracture with routine healing (principal)
CPT/HCPCS: 73630

== ENCOUNTER → 2022-07-02 | Outpatient (CLI) | payer MEDICARE, OTHER, SELFPAY ==
[2022-07-02 07:53] LABS: ALB/GLOB Ratio 1.1 RATIO (0.9-2.4); AST(SGOT) 24 U/L (15-37); Alanine Aminotransfer ALT/SGPT 34 U/L (16-61); Albumin, Serum 3.9 g/dL (3.2-5.0); Alkaline Phosphatase 65 U/L (45-117); Anion Gap 5 (5-15); BUN 24 mg/dL (7-18); BUN/Creat Ratio 23.3 RATIO (10-20); Calcium,Total 8.9 mg/dL (8.5-10.1); Chloride 108 mmol/L (98-107); Cholesterol 136 mg/dL (200); Creatinine, Serum 1.03 mg/dL (0.70-1.30); EST Glomerular Filtration Rate 77 mL/min (>60); Est Glom Filt Rate - Afr Amer 93 mL/min (>60); Globulin 3.6 g/dL (2.2-4.2); Glucose 109 mg/dL (74-106); High Density Lipoprotein 34 mg/dL; Potassium 3.8 mmol/L (3.5-5.1); Protein, Total 7.5 g/dL (6.4-8.2); Sodium Level 139 mmol/L (136-145); Triglycerides 88 mg/dL; Very Low Density Lipoprotein 18 mg/dL (5-40)
[2022-07-02 08:08] LABS: Vitamin D,25 Hydroxy 42.4 ng/mL
== END | disposition home or self-care (01) ==
LOC: LAB 06:50
PROVIDERS: PCP Nurse Practitioner Family; Referring Provider Nurse Practitioner Family; Visit Provider Nurse Practitioner Family
DX: E78.5 Hyperlipidemia, unspecified (principal); R73.01 Impaired fasting glucose; I10 Essential (primary) hypertension; I25.5 Ischemic cardiomyopathy; E55.9 Vitamin D deficiency, unspecified
CPT/HCPCS: 36415; 80053; 80061; 82306

== ENCOUNTER → 2022-12-13 | Outpatient (CLI) | payer MEDICARE, OTHER, SELFPAY ==
--- NOTE | 2022-12-13 19:08 | STRESSREP ---
Stress Test Report Exercise myocardial perfusion stress test. 67-year-old man with a history of chest pain Stress protocol: Resting EKG demonstrates normal sinus rhythm with a rate of 66 bpm resting blood pressure is 134/88 mmHg. The patient exercised according to the regular Gilberto protocol for a total duration of 8 minutes attaining a maximum heart rate of 148 bpm which was 96% of maximum predicted heart rate; the maximum workload was 10.1 metabolic equivalents. At rest there were no ST or T wave changes noted to suggest ischemia and at peak exercise upsloping ST changes only were noted which did not meet the criteria for ischemia. No clinical angina was noted the test was terminated due to the target heart rate being achieved/fatigue. Occasional premature ventricular complexes were noted the peak blood pressure was 182/88 mmHg. Rate-pressure product was 23,360. Myocardial perfusion protocol. 14.5 mCi of technetium 99m sestamibi was injected at rest. The patient exercised according to regular Gilberto protocol for total duration of 8 minutes and at peak exercise 45 mCi of technetium 99m sestamibi was injected stress images were obtained stress and rest images were reconstructed in comparing the short axis vertical long and horizontal long axis. Gated images were also obtained. Perfusion SPECT analysis: Review of the stress images demonstrate normal uptake of tracer noted in all areas of the myocardium. The resting images similarly demonstrate normal uptake of tracer noted in all areas of the myocardium. No areas of reversibility are noted to suggest ischemia no previous infarct was noted. Gated SPECT analysis: The gated ejection fraction is 46%. Conclusion: Normal exercise myocardial perfusion stress test at a high workload Mildly reduced ejection fraction.
== END | disposition home or self-care (01) ==
PROVIDERS: PCP Nurse Practitioner Family; Visit Provider Internal Medicine Cardiovascular Disease
DX: R53.83 Other fatigue (principal); I49.3 Ventricular premature depolarization; R07.9 Chest pain, unspecified; I25.2 Old myocardial infarction; I25.10 Atherosclerotic heart disease of native coronary artery without angina pectoris; Z95.5 Presence of coronary angioplasty implant and graft; I25.5 Ischemic cardiomyopathy; I10 Essential (primary) hypertension; E78.5 Hyperlipidemia, unspecified
CPT/HCPCS: 78452; 93017; A9500; A4216

== ENCOUNTER → 2023-06-15 | Outpatient (CLI) | payer MEDICARE, OTHER, SELFPAY ==
--- NOTE | 2023-06-15 09:15 | MRI_ITS ---
STUDY: MRI RIGHT FOREFOOT WITHOUT CONTRAST REASON FOR EXAM: Male, 67 years old. Metatarsal pain. TECHNIQUE: Standardized fat and water weighted pulse sequences were obtained in all 3 orthogonal planes. COMPARISON: Right foot x-rays dated May 03, 2022. FINDINGS: Mild arthrosis of the midfoot. Moderate arthrosis of the MTP and IP joints with minimal hammertoe deformities. Small joint effusions of the MTP and IP joints. Normal intrinsic muscles of the forefoot. Normal soft tissues. 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 No other abnormality identified. Electronically Signed: Arsenio Atwood MD at 9:29 EDT ,
== END | disposition home or self-care (01) ==
LOC: MRI 08:34
PROVIDERS: PCP Nurse Practitioner Family; Referring Provider Podiatrist; Visit Provider Podiatrist
DX: M77.51 Other enthesopathy of right foot and ankle (principal); M77.41 Metatarsalgia, right foot; M79.671 Pain in right foot
CPT/HCPCS: 73718

== ENCOUNTER 2024-03-09 06:08 | Outpatient (CLI) | payer MEDICARE, OTHER, SELFPAY ==
[2024-03-09 06:37] LABS: Absolute Lymphocyte Count 1.36 X10^3/uL (0.83-4.51); Absolute Neutrophil Count 2.8 X10^3/uL (2.0-7.7); Basophil# 0.02 X10^3/uL; Basophil% 0.4 % (0-1); Eosinophil# 0.12 X10^3/uL; Eosinophils% 2.4 % (0-5); Hemoglobin 15.3 g/dL (13.0-16.5); Lymphocyte # 1.36 X10^3/ul (0.83-4.51); Lymphocyte % 27.8 % (19-41); Mean Corp Hgb Conc 33.3 g/dL (32-36); Mean Corpuscular Hgb 31.7 pg (27.0-32.0); Mean Corpuscular Volume 95.4 fL (80-94); Mean Platelet Vol. 9.5 fl (6.2-12.0); Monocyte# 0.59 X10^3/uL; NRBC Flagged by Analyzer 0 % (0-5); Neutrophil # 2.78 X10^3/uL (2.7-7.7); Neutrophil % 56.8 % (47-70); Platelet Count 191 K/mm3 (150-450); RBC Distribution Width SD 46.2 fl (35.1-43.9); Red Blood Count 4.82 M/mm3 (4.6-6.2); White Blood Count 4.9 K/mm3 (4.4-11.0)
[2024-03-09 07:25] LABS: ALB/GLOB Ratio 1.1 RATIO (0.9-2.4); AST(SGOT) 29 U/L (15-37); Alanine Aminotransfer ALT/SGPT 50 U/L (16-61); Albumin, Serum 3.7 g/dL (3.2-5.0); Alkaline Phosphatase 64 U/L (45-117); Anion Gap 5 (5-15); BUN 19 mg/dL (7-18); BUN/Creat Ratio 19.3 RATIO (10-20); Calcium,Total 8.4 mg/dL (8.5-10.1); Chloride 109 mmol/L (98-107); Creatinine, Serum 0.98 mg/dL (0.70-1.30); EST Glomerular Filtration Rate 80 mL/min (>60); Est Glom Filt Rate - Afr Amer 97 mL/min (>60); Globulin 3.4 g/dL (2.2-4.2); Glucose 126 mg/dL (74-106); Magnesium 2.1 mg/dL (1.6-2.6); Protein, Total 7.1 g/dL (6.4-8.2); Sodium Level 138 mmol/L (136-145); Thyroid Stim Hormone (TSH) 1.28 uIU/mL (0.358-3.74)
== END 2024-03-09 23:59 | disposition home or self-care (01) ==
LOC: LAB 06:10
PROVIDERS: PCP Nurse Practitioner Family; Referring Provider Physician Assistant Medical; Visit Provider Physician Assistant Medical
DX: R55 Syncope and collapse (principal); I25.5 Ischemic cardiomyopathy; I25.10 Atherosclerotic heart disease of native coronary artery without angina pectoris; R53.83 Other fatigue
CPT/HCPCS: 36415; 80053; 83735; 84443; 85025

== ENCOUNTER → 2024-03-16 | Outpatient (CLI) | payer MEDICARE, OTHER, SELFPAY ==
--- NOTE | 2024-03-16 12:41 | CDU_ITS ---
Reason For Study: SYNCOPE Rt. Velocities/BP Lt. Velocities/BP Prox CCA 71.4/17.6 cm/sec. Prox CCA 75.7/16.4 cm/sec. Mid CCA 81.8/21.4 cm/sec. Mid CCA 79.8/16.0 cm/sec. Dist CCA 65.8/18.5 cm/sec. Dist CCA 69.9/14.9 cm/sec. Prox ICA 39.6/11.2 cm/sec. Prox ICA 60.9/11.8 cm/sec. Mid ICA 60.4/16.0 cm/sec. Mid ICA 69.5/22.8 cm/sec. Dist ICA 57.9/21.0 cm/sec. Dist ICA 40.9/15.1 cm/sec. Rt. ICA/CCA = 60.4/81.8=0.7. Lt. ICA/CCA = 69.5/79.8=0.9. Prox ECA 82.8/17.6 cm/sec. Prox ECA 110.7/19.4 cm/sec. Rt. Vert. 50.4/10.9 cm/sec. Lt. Vert. 68.3/19.2 cm/sec. Right Extracranial There is homogeneous, smooth atherosclerotic plaque noted in the right common carotid artery. There is intimal thickening but no significant atherosclerotic plaque noted in the right internal carotid artery. There is homogeneous, smooth atherosclerotic plaque noted in the right external carotid artery. Antegrade flow is noted in the right vertebral artery. Left Extracranial There is intimal thickening but no significant atherosclerotic plaque noted in the left common carotid artery. There is heterogeneous, irregular atherosclerotic plaque noted in the left internal carotid artery. There is heterogeneous, irregular atherosclerotic plaque noted in the left external carotid artery. Antegrade flow is noted in the left vertebral artery. Procedure Carotid Duplex [id number]. This is a Carotid Duplex examination using B-mode, color flow and specral Doppler. Exam performed in department. VL/Carotid Duplex Ultrasound Interpretation Summary Normal right extracranial internal carotid. Mild (<50%) stenosis left extracranial internal carotid. Patent and antegrade vertebrals bilaterally. Ordering Physician: Marbella Xiong Referring Physician: Joce Reid Performed By: Hemalatha Feldman, TANYA, RVT
== END | disposition home or self-care (01) ==
LOC: CVS 12:40
PROVIDERS: PCP Nurse Practitioner Family; Referring Provider Physician Assistant Medical; Visit Provider Physician Assistant Medical
DX: R55 Syncope and collapse (principal); I25.2 Old myocardial infarction; I25.10 Atherosclerotic heart disease of native coronary artery without angina pectoris; Z95.5 Presence of coronary angioplasty implant and graft; I25.5 Ischemic cardiomyopathy; E78.5 Hyperlipidemia, unspecified; I10 Essential (primary) hypertension
CPT/HCPCS: 93880

== ENCOUNTER → 2024-04-06 | Outpatient (CLI) | payer MEDICARE, OTHER, SELFPAY ==
--- NOTE | 2024-04-06 06:01 | ECHOD_ITS ---
Reason For Study: Syncope, CAD, Stent, [place] Procedure This was a 2D Doppler, Color Flow transthoracic echocardiogram. Myocardial strain analysis was performed in this exam to aid in the assessment of cardiac function. Exam performed in department. Left Ventricle Normal LV size. The estimated ejection fraction is 50 %. No evidence for diastolic dysfunction. No regional wall motion abnormalities noted. Right Ventricle Normal RV size. Normal systolic function. Atria The left and right atria are normal. No doppler evidence for ASD. Mitral Valve There is no mitral valve stenosis. Trivial mitral valve insufficiency. Tricuspid Valve There is no tricuspid stenosis. Mild tricuspid valve insufficiency. Pulmonary artery systolic pressure is 25 mmHg. Aortic Valve Trisinus/trileaflet aortic valve. There is no aortic stenosis. No aortic valve insufficiency. Pulmonic Valve There is no pulmonic valvular stenosis. No pulmonic valve insufficiency. Great Vessels Normal aortic root. Pericardium/Pleural No pericardial effusion. MMode/2D Measurements & Calculations LVIDd: 5.3 cm IVSd: 1.3 cm Ao root diam: 3.9 cm LVIDs: 4.2 cm LVPWd: 1.1 cm RVDd: 4.3 cm FS: 21.1 % LAV(MOD-bp): 46.4 ml LVAd ap4: 36.9 cm2 SV(MOD-sp4): 59.8 ml LAV(MOD-bp) Indexed: 20.7 ml/m2 LVLd ap4: 8.6 cm LAV(MOD-sp2): 47.7 ml EDV(MOD-sp4): 130.9 ml LAV(MOD-sp4): 42.3 ml EDV(sp4-el): 134.2 ml LVAs ap4: 25.3 cm2 LVLs ap4: 7.4 cm ESV(MOD-sp4): 71.1 ml ESV(sp4-el): 73.6 ml EF(MOD-sp4): 45.7 % EF(sp4-el): 45.2 % SV(sp4-el): 60.6 ml LA A4 area: 17.0 cm2 LA dimension(2D): 3.9 cm RA A4 area: 17.4 cm2 TAPSE: 3.0 cm Time Measurements MV dec time: 0.26 sec Doppler Measurements & Calculations MV E max naldo: 51.7 cm/sec Lat Peak E' Naldo: 6.9 cm/sec Med Peak E' Naldo: 6.2 cm/sec MV A max naldo: 94.3 cm/sec E/E' lat: 7.5 E/E' med: 8.4 MV E/A: 0.55 Ao V2 max: 101.9 cm/sec LV V1 max: 95.4 cm/sec MV dec slope: 196.3 cm/sec2 Ao max P.2 mmHg LV V1 max P.6 mmHg Ao V2 mean: 82.9 cm/sec Ao mean P.8 mmHg Ao V2 VTI: 24.9 cm PA V2 max: 109.4 cm/sec TR max naldo: 235.5 cm/sec TR max P.2 mmHg ECHO/Echo Complete Interpretation Summary The estimated ejection fraction is 50 %. No evidence for diastolic dysfunction. Trivial mitral valve insufficiency. Ordering Physician: Marbella Xiong Referring Physician: Joce saez Performed By: Charlette Owens, TANYA, RVT
--- NOTE | 2024-04-10 10:42 | STRESSREP_ITS ---
Stress Test Report Date: 04/06/2024 Procedure: Pharmacologic stress nuclear imaging study Indications: Chest pain Consent: Per the patient Procedure: The patient underwent pharmacologic (Regadenoson) evaluation with a peak heart rate of 82 beats per minute (53%predicted maximal heart rate) and a peak blood pressure of 146/78 mmHg. The baseline ECG demonstrated normal sinus rhythm. EKG during lexiscan infusion revealed no significant ischemic changes. EKG post infusion revealed no significant ischemic changes [There were no cardiac dysrhythmias pretest, during pharmacologic infusion, or recovery]. [There was no complaint of chest discomfort during pharmacologic infusion or recovery]. The examination was discontinued secondary to completion of protocol. Impression: 1. Lexiscan stress test test is negative for Lexiscan infusion induced EKG changes of ischemia. 2. Lexiscan stress test test is negative for Lexiscan infusion induced chest pain. 3. Results of the nuclear portion of the test is as below Myocardial perfusion imaging study: Technique: The patient was injected with 14.5 millicuries of technetium 99m Cardiolite and subsequently rest SPECT Cardiolite nuclear imaging was obtained in the horizontal long, vertical long, and short axis views. The patient underwent pharmacologic [Regadenoson 0.4mg] evaluation. Please see above for details. The patient was injected with 44.2 millicuries of technetium 99m Cardiolite and subsequently stress SPECT Cardiolite nuclear imaging was obtained in the horizontal long, vertical long, and short axis views. A gated Cardiolite study at peak stress was obtained. Interpretation: Rest and stress SPECT Cardiolite nuclear imaging status post realignment, normalization, and attenuation correction demonstrate fixed defect in the apex. No significant reversibility suggestive of significant ischemia. Gated images reveal hypokinesis of the septum and apex. These findings are suggestive of prior apical myocardial infarction with no evidence of significant inducible ischemia. The reported LVEF is 47%. Impression: 1. There is no evidence of significant ischemia. Prior apical myocardial infarction 2. Estimated ejection fraction is 47%. This note was generated with Individual [employer] software. It may contain incorrect words, spelling, and punctuation that were not noted in checking the note before signing.
== END | disposition home or self-care (01) ==
LOC: CVS 06:00
PROVIDERS: PCP Nurse Practitioner Family; Referring Provider Physician Assistant Medical; Visit Provider Physician Assistant Medical
DX: R55 Syncope and collapse (principal); I25.2 Old myocardial infarction; I25.10 Atherosclerotic heart disease of native coronary artery without angina pectoris; Z95.5 Presence of coronary angioplasty implant and graft; I25.5 Ischemic cardiomyopathy; I10 Essential (primary) hypertension; E78.5 Hyperlipidemia, unspecified; R07.9 Chest pain, unspecified
CPT/HCPCS: 78452; 93017; 93306; A9500; A4216; J2785

== ENCOUNTER → 2025-01-28 | Outpatient (CLI) | payer MEDICARE, OTHER, SELFPAY ==
[2025-01-28 15:37] LABS: Absolute Lymphocyte Count 1.21 X10^3/uL (0.83-4.51); Absolute Neutrophil Count 3.1 X10^3/uL (2.0-7.7); Basophil# 0.03 X10^3/uL; Basophil% 0.6 % (0-1); Eosinophil# 0.06 X10^3/uL; Eosinophils% 1.2 % (0-5); Hematocrit 46.4 % (40-54); Hemoglobin 15.6 g/dL (13.0-16.5); Lymphocyte # 1.21 X10^3/ul (0.83-4.51); Lymphocyte % 24.6 % (19-41); Mean Corp Hgb Conc 33.6 g/dL (32-36); Mean Corpuscular Hgb 31.3 pg (27.0-32.0); Mean Platelet Vol. 11.1 fl (6.2-12.0); Monocyte# 0.48 X10^3/uL; Monocyte% 9.8 % (0-10); NRBC Flagged by Analyzer 0 % (0-5); Neutrophil # 3.11 X10^3/uL (2.7-7.7); Neutrophil % 63.2 % (47-70); Platelet Count 201 K/mm3 (150-450); RBC Distribution Width CV 12.5 % (11.6-14.6); RBC Distribution Width SD 42.9 fl (35.1-43.9); Red Blood Count 4.99 M/mm3 (4.6-6.2); White Blood Count 4.9 K/mm3 (4.4-11.0)
[2025-01-28 16:32] LABS: Anion Gap 12 (5-15); BUN 16 mg/dL (4-19); BUN/Creat Ratio 18.1 RATIO (10-20); Calcium,Total 9.4 mg/dL (7.6-11.0); Chloride 106 mmol/L (98-108); EST Glomerular Filtration Rate 93 (>60); Glucose 121 mg/dL (70-99); Magnesium 2.1 mg/dL (1.5-2.2); Potassium 4.2 mmol/L (3.3-5.1); Sodium Level 138 mmol/L (133-145)
== END | disposition home or self-care (01) ==
LOC: LAB 14:58
PROVIDERS: PCP Nurse Practitioner Family; Referring Provider Nurse Practitioner Family; Visit Provider Nurse Practitioner Family
DX: I49.3 Ventricular premature depolarization (principal); I10 Essential (primary) hypertension
CPT/HCPCS: 36415; 80048; 83735; 84439; 84443; 85025

== ENCOUNTER → 2025-01-31 | Outpatient (CLI) | payer MEDICARE, OTHER, SELFPAY | END | disposition home or self-care (01) | PROVIDERS: PCP Nurse Practitioner Family; Referring Provider Nurse Practitioner Family; Visit Provider Nurse Practitioner Family | DX: I49.3 Ventricular premature depolarization (principal) | CPT/HCPCS: 93225; 93226 ==

== ENCOUNTER → 2025-02-22 | Outpatient (CLI) | payer MEDICARE, OTHER, SELFPAY ==
--- NOTE | 2025-02-22 13:32 | STRESSREP ---
Stress Test Report Pharmacologic myocardial perfusion stress test. 69-year-old with a history of coronary artery disease Resting EKG demonstrates sinus rhythm with premature atrial complexes and premature ventricular complexes with a rate of 76 bpm. Resting blood pressure is 130/84 mmHg. 0.4 mg of regadenoson was infused per usual protocol followed by rapid intravenous saline flush injection. Continuous EKG monitoring was performed. The maximum heart rate was 90 bpm which was 59% of max impacted heart rate the maximum workload was 1 metabolic equivalent. At rest there were no ST or T wave changes noted to suggest ischemia and at peak infusion nonspecific ST changes were noted which did not meet the criteria for ischemia. No clinical angina is noted. The final blood pressure was 118/70mmHg. Myocardial perfusion protocol. 14.8 mCi of technetium 99m sestamibi was injected at rest. 0.4 mg of regadenoson was infused per usual protocol. At peak infusion 44.7 mCi of technetium 99m sestamibi was injected stress images were obtained stress and rest images were reconstructed and compared in the short axis vertical long and horizontal long axis. Gated images were also obtained. Perfusion SPECT analysis: Review of the stress images demonstrate normal uptake of tracer noted in all areas of the myocardium. The resting images similar demonstrated normal uptake of tracer noted in all areas of the myocardium. No areas of reversibility are noted to suggest ischemia and no previous infarct is noted. Gated SPECT analysis: The gated ejection fraction is 35%. Conclusion: Normal pharmacologic myocardial perfusion stress test. Reduced ejection fraction.
== END | disposition home or self-care (01) ==
LOC: CVS 06:00
PROVIDERS: PCP Nurse Practitioner Family; Referring Provider Nurse Practitioner Family; Visit Provider Nurse Practitioner Family
DX: I49.3 Ventricular premature depolarization (principal); R55 Syncope and collapse; R53.83 Other fatigue; I25.10 Atherosclerotic heart disease of native coronary artery without angina pectoris; I25.5 Ischemic cardiomyopathy; I25.2 Old myocardial infarction
CPT/HCPCS: 78452; 93017; A9500; A4216; J2785

== ENCOUNTER → 2025-03-01 | Outpatient (CLI) | payer MEDICARE, OTHER, SELFPAY ==
--- NOTE | 2025-03-01 10:42 | ECHOD_ITS ---
Reason For Study Reason For Study: PVC, REDUCED EF Procedure This was a 2D Doppler, Color Flow transthoracic echocardiogram. Patient scanned supine. Exam performed in department. Left Ventricle Normal left ventricle. Mild concentric left ventricular hypertrophy. Left ventricular systolic function is lower limits of normal. The estimated ejection fraction is 47 %. No regional wall motion abnormalities noted. Right Ventricle Normal RV size. Normal systolic function. Atria Normal left atrium. Normal right atrium. Mitral Valve Normal mitral valve. Tricuspid Valve Normal tricuspid valve. Aortic Valve Trisinus/trileaflet aortic valve. Pulmonic Valve Normal pulmonic valve. Great Vessels Normal sized aortic root. The pulmonary artery is normal size. Inferior vena cava collapse with respiration. Pericardium/Pleural No pericardial effusion. MMode/2D Measurements & Calculations LVIDd: 5.9 cm IVSd: 1.3 cm LVOT diam: 2.2 cm LVIDs: 4.5 cm LVPWd: 1.2 cm LVOT area: 3.7 cm2 FS: 23.1 % Ao root diam: 3.7 cm LAV(MOD-bp): 30.0 ml LVAd ap4: 34.9 cm2 LAV(MOD-bp) Indexed: 13.3 ml/m2 LVLd ap4: 9.1 cm LAV(MOD-sp2): 32.8 ml EDV(MOD-sp4): 113.2 ml LAV(MOD-sp4): 25.8 ml EDV(sp4-el): 114.1 ml LVAs ap4: 24.9 cm2 LVLs ap4: 7.9 cm ESV(MOD-sp4): 70.4 ml ESV(sp4-el): 66.4 ml EF(MOD-sp4): 37.9 % EF(sp4-el): 41.9 % SV(MOD-sp4): 42.9 ml SV(sp4-el): 47.8 ml LA A4 area: 12.8 cm2 SI(MOD-sp4): 19.0 ml/m2 LA dimension(2D): 4.0 cm RA A4 area: 16.8 cm2 Doppler Measurements & Calculations Lat Peak E' Naldo: 6.5 cm/sec Med Peak E' Naldo: 14.6 cm/sec Ao V2 max: 97.7 cm/sec Ao max P.8 mmHg Ao V2 mean: 77.5 cm/sec Ao mean P.6 mmHg Ao V2 VTI: 20.9 cm AV (velocity ratio): 0.68 MARIA DEL ROSARIO(I,D): 2.5 cm2 MARIA DLE ROSARIO(V,D): 3.3 cm2 LV V1 max: 86.0 cm/sec SV(LVOT): 52.9 ml PA V2 max: 92.5 cm/sec LV V1 max P.0 mmHg PA V2 mean: 65.2 cm/sec LV V1 mean P.0 mmHg LV V1 mean: 68.2 cm/sec LV V1 VTI: 14.2 cm ECHO/Echo Complete Interpretation Summary Normal left ventricle. Mild concentric left ventricular hypertrophy. Left ventricular systolic function is lower limits of normal. The estimated ejection fraction is 47 %. Ordering Physician: Claudio Owens Referring Physician: Claudio Owens Performed By: Staci Quintanilla RCS
== END | disposition home or self-care (01) ==
LOC: CVS 10:40
PROVIDERS: PCP Nurse Practitioner Family; Referring Provider Nurse Practitioner Family; Visit Provider Nurse Practitioner Family
DX: I49.3 Ventricular premature depolarization (principal)
CPT/HCPCS: 93306